=== PATIENT | male | born 1950 | race Caucasian/White ===

== ENCOUNTER → 2018-02-24 | Outpatient (CLI) | payer OTHER | END | disposition home or self-care (01) | LOC: RAH 14:54 | PROVIDERS: ATTEND Orthopaedic Surgery | DX: M19.042 Primary osteoarthritis, left hand (principal); M19.041 Primary osteoarthritis, right hand | CPT/HCPCS: 73130 ==

== ENCOUNTER → 2024-09-06 | Outpatient (CLI) | payer OTHER | END | disposition home or self-care (01) | LOC: SHCH 09:11 | PROVIDERS: ATTEND Internal Medicine Cardiovascular Disease | DX: I48.0 Paroxysmal atrial fibrillation (principal) | CPT/HCPCS: 93306 ==

== ENCOUNTER 2025-09-04 18:32 | Inpatient (IN) | payer OTHER, MEDICARE ==
[~2025-09-04] VITALS: Ht 172.7 cm; Wt 67.4 kg
--- NOTE | 2025-09-04 19:05 | EKG ---
[facility] Test Date: 2025-09-04 Test Time: 18:55:01 Pat Name: LAWANDA MARTINEZ Department: [facility] Room: 422 Gender: M Principal Investigator: [id number] : 1950 Requested By: KEVIN MEEK Order Number: [id number] Reading MD: Dimple Pettit Measurements Intervals [place] Rate: 98 P: 0 OR: 0 QRS: -22 QRSD: 85 T: 61 QT: 368 QTc: 470 Interpretive Statements Atrial fibrillation Inferior infarct, old Nonspecific T abnormalities, lateral leads No previous ECG available for comparison Electronically Signed On 09-06-2025 12:36:08 X RAY SERVICE TECHNICIAN by Dimple Pettit Please click the below link to view image of tracing.
--- NOTE | 2025-09-04 19:31 | HMCIMG ---
EXAM: CT Head Without IV contrast. CLINICAL HISTORY: Altered mental status. TECHNIQUE: Axial computed tomography images of the head/brain without intravenous contrast. COMPARISON: None provided. FINDINGS: BRAIN: Mild to moderate bilateral cerebral and cerebellar neuroparenchymal atrophy. Moderate to severe chronic small vessel ischemic changes involving bilateral periventricular and supraventricular white matter. Chronic infarct in the left putamen and left insular cortex. No evidence of acute hemorrhage. No mass lesion. No CT evidence for acute territorial infarct. No midline shift or extra-axial collections. VENTRICLES: No hydrocephalus. ORBITS: The orbits are unremarkable. SINUSES AND MASTOIDS: The paranasal sinuses and mastoid air cells are clear. BONES: No fracture. SOFT TISSUES: Unremarkable. IMPRESSION: No evidence of acute hemorrhage. No mass lesion. No CT evidence for acute territorial infarct. Suggested MRI brain for further evaluation, if clinically indicated. Mild to moderate bilateral cerebral and cerebellar neuroparenchymal atrophy. Moderate to severe chronic small vessel ischemic changes involving bilateral periventricular and supraventricular white matter. Chronic infarct in the left putamen and left insular cortex. /[place]
--- NOTE | 2025-09-04 19:46 | HMCIMG ---
EXAM: CR Chest, 1 View. CLINICAL HISTORY: ams COMPARISON: None provided. FINDINGS: LUNGS: No active infiltrate PLEURAL SPACES: No pleural effusion or pneumothorax. MEDIASTINUM: Cardiac silhouette prominent BONES: No acute osseous abnormality. IMPRESSION: 1. Cardiac silhouette prominent 2. No active infiltrate /[place]
[2025-09-04 20:07] LABS: IMMATURE GRANULOCYTE ABSOLUTE 0.04 K/uL (0-1); NUCLEATED RED BLOOD CELLS 0.0 % (0.0-0.19); PLATELET COUNT (AUTO) 74 K/uL (130-400); RED BLOOD CELL COUNT(AUTO) 2.86 MIL/uL (4.50-6.20); RED CELL DISTRIBUTION WIDTH 16.3 % (11.0-15.5); WHITE BLOOD COUNT (AUTO) 6.4 K/uL (4.8-10.8)
[2025-09-04 20:21] LABS: INR 1.9 (0.85-1.15)
[2025-09-04 20:25] LABS: CREATININE 1.4 mg/dL (0.5-1.3); GLOMERULAR FILTR. RATE CALC 52.0 mL/min (>90); GLUCOSE,RANDOM 210.0 mg/dL (70-105); SODIUM SERUM 132.0 mmol/L (136-145); UREA NITROGEN, BLOOD 15.0 mg/dL (7-18)
[2025-09-04 20:29] LABS: ASPARTATE AMINOTRANSFERASE 61.0 U/L (10-37); TOTAL PROTEIN, SERUM 7.1 g/dL (6.0-8.3)
[2025-09-04 20:54] LABS: APPEARANCE,URINE CLEAR (CLEAR); GLUCOSE, URINE (UA) 30 mg/dL (NEGATIVE); LEUKOCYTE ESTERASE ,URINE NEGATIVE Leu/uL (NEGATIVE); NITRATE,URINE NEGATIVE (NEGATIVE); OCCULT BLOOD,URINE NEGATIVE (NEGATIVE)
[2025-09-04 20:58] LABS: ADD UA MICROSCOPIC YES
[2025-09-04 21:01] LABS: SQUAMOUS EPITHELIAL CELL,UR RARE /HPF (0-2)
--- NOTE | 2025-09-04 21:01 | ERN ---
General Chief Complaint: Altered Mental Status Stated Complaint: ALTERED MENTAL STATUS HX OF LIVER CIRRHOSIS. Time Seen by MD: 18:35 Time Seen by Midlevel: 18:35 Source: patient History of Present Illness Initial Comments 75-YEAR-OLD MALE WITH A PAST MEDICAL HISTORY OF LIVER CIRRHOSIS BEING BROUGHT IN BY EMS FOR EVALUATION OF ALTERED MENTAL STATUS Allergies: Coded Allergies: No Known Drug Allergies (Unverified Allergy, Unknown, 09/04/25) Past Medical History Past Medical History: A-Fib, Diabetes-Type II, High Cholesterol, Hypertension, Liver Disease Medical History Other: LIVER CIRRHOSIS Past Surgical History: Unknown ROS Dictation CONSTITUTIONAL: NEGATIVE EXCEPT FOR HPI HEAD/FACE: NEGATIVE EXCEPT FOR HPI EENT: NEGATIVE EXCEPT FOR HPI RESPIRATORY: NEGATIVE EXCEPT FOR HPI GASTROINTESTINAL/ABDOMINAL: NEGATIVE EXCEPT FOR HPI GENITOURINARY: NEGATIVE EXCEPT FOR HPI MUSCULOSKELETAL: NEGATIVE EXCEPT FOR HPI INTEGUMENTARY: NEGATIVE EXCEPT FOR HPI NEUROLOGICAL/PSYCH: NEGATIVE EXCEPT FOR HPI HEMATOLOGIC/LYMPHATIC: NEGATIVE EXCEPT FOR HPI ALL SYSTEMS NEGATIVE, EXCEPT NOTED ABOVE. 13 POINT REVIEW OF SYSTEMS ASSESSED AND ALL NEGATIVE EXCEPT FOR ABOVE. Physical Exam Physical Exam Dictation VITAL SIGNS REVIEWED GENERAL APPEARANCE: ALERT, ORIENTED X 2 HEAD AND FACE: NON-TRAUMATIC. EYES: PERRL, PINK CONJUNCTIVAS, EYELID NO TRAUMA, ANTERIOR CHAMBER WITH ARCUS SENILIS. EARS: PINNAS INTACT AND NO SIGNS OF TRAUMA OR ERYTHEMA EAR CANALS CLEAR AND NO DISCHARGE TM NO ERYTHEMA NOSE: NO DISCHARGE, NO BLEEDING. OROPHARYNX: MOUTH NORMAL, TONGUE PINK, PHARYNX CLEAR,NO ERYTHEMA, TONSILS NO EXUDATES, NO ABSCESSES NOTED, MUCOUS MEMBRANE MOIST NECK: SUPPLE, NON-TENDER, NO THYROMEGALY, NO MASSES, NO JVD, NO BRUITS BREAST:DEFERRED CHEST:NO TENDERNESS, NO CREPITUS, NO PARADOXICAL MOVEMENT, NO RETRACTIONS LUNGS:CLEAR, WELL-VENTILATED, SYMMETRIC, NO RALES, NO WHEEZING, NO RHONCHI, NO STRIDOR, GOOD BREATH SOUNDS BILATERALLY HEART: REGULAR RATE, REGULAR RHYTHM, NO MURMUR, NO GALLOPS VASCULAR: NO PERIPHERAL EDEMA, ABDOMEN: SOFT, POSITIVE BOWEL SOUNDS, NONDISTENDED, NO GUARDING, NONTENDER, NO REBOUND, NO MASSES NO HEPATOMEGALY, NO SPLENOMEGALY, NO FORD'S SIGN, NO HERNIAS. RECTAL: DEFERRED GENITAL: DEFERRED NEUROLOGICAL: NORMAL SPEECH, FOLLOWS SIMPLE COMMANDS, APPEARS CONFUSED MUSCULOSKELETAL: NECK NONTENDER, FULL RANGE OF MOTION, BACK NONTENDER, FULL RANGE OF MOTION, EXTREMITIES: NONTENDER, FULL RANGE OF MOTION SKIN: COLOR PINK, DRY, NO TURGOR, NO RASH, NO LACERATIONS, NO ABRASIONS, NO CONTUSIONS. LYMPHATIC: DEFERRED Results Laboratory and Microbiology Lab and Micro Result Laboratory Tests Test 09/04/25 19:55 White Blood Count 6.4 K/uL (4.8-10.8) Red Blood Count 2.86 MIL/uL (4.50-6.20) L Hemoglobin 10.5 g/dL (14.0-18.0) L Hematocrit 30.5 % (42-54) L Mean Corpuscular Volume 106.6 fL (79-99) H Mean Corpuscular Hemoglobin 36.7 pg (27.0-33.0) H Mean Corpuscular Hemoglobin Concent 34.4 g/dL (32.0-36.0) Red Cell Distribution Width 16.3 % (11.0-15.5) H Platelet Count 74 K/uL (130-400) L Mean Platelet Volume 10.6 fL (7.5-10.5) H Immature Granulocyte % (Auto) 0.6 % (0-1) Neutrophils (%) (Auto) 66.8 % (40.0-77.0) Lymphocytes (%) (Auto) 16.5 % (21.0-51.0) L Monocytes (%) (Auto) 12.0 % (3.0-13.0) Eosinophils (%) (Auto) 3.5 % (0.0-8.0) Basophils (%) (Auto) 0.6 % (0.0-5.0) Neutrophils # (Auto) 4.2 K/uL (1.8-7.7) Lymphocytes # (Auto) 1.1 K/uL (1.0-4.8) Monocytes # (Auto) 0.8 K/uL (0.1-1.0) Eosinophils # (Auto) 0.22 K/uL (0.00-0.70) Basophils # (Auto) 0.04 K/uL (0.00-0.20) Absolute Immature Granulocyte (auto 0.04 K/uL (0-1) Nucleated Red Blood Cells 0.0 % (0.0-0.19) Red Blood Cell Morphology See comments Prothrombin Time 18.9 SEC (9.6-11.6) H Prothromb Time International Ratio 1.90 (0.85-1.15) H Activated Partial Thromboplast Time 33.2 SEC (26.3-35.5) Sodium Level 132 mmol/L (136-145) L Potassium Level 5.0 mmol/L (3.5-5.1) Chloride Level 104 mmol/L (101-111) Carbon Dioxide Level 22 mmol/L (21-32) Blood Urea Nitrogen 15 mg/dL (7-18) Creatinine 1.4 mg/dL (0.5-1.3) H Glomerular Filtration Rate Calc 52 mL/min (>90) Random Glucose 210 mg/dL (70-105) H Lactic Acid Level 3.0 mmol/L (0.8-2.5) H Total Calcium 7.9 mg/dL (8.5-10.1) L Magnesium Level 1.90 mg/dL (1.80-2.40) Total Bilirubin 4.1 mg/dL (0.2-1.0) H Direct Bilirubin 1.7 mg/dL (0.0-0.3) H Aspartate Amino Transf (AST/SGOT) 61 U/L (10-37) H Alanine Aminotransferase (ALT/SGPT) 47 U/L (12-78) Alkaline Phosphatase 246 U/L (50-136) H Ammonia 61 umol/L (11-32) H Troponin I High Sensitivity 17 ng/L (4-75) B-Type Natriuretic Peptide 202 pg/mL (0-100) H Total Protein 7.1 g/dL (6.0-8.3) Albumin 1.9 g/dL (3.5-5.0) L Labs Reviewed?: Yes MDM MDM: DIFFERENTIAL DIAGNOSIS: HEPATIC ENCEPHALOPATHY, SEPSIS, URINARY TRACT INFECTION RATIONALE: TESTS CONSIDERED AND ORDERED SECONDARY TO SHARED DECISION MAKING INCLUDE: PREVIOUS OUTSIDE RECORDS REVIEWED: OLD ER VISITS. RISK OF COMPLICATION AND/OR MORBIDITY OR MORTALITY OF PATIENT MANAGEMENT: NONE MEDICATIONS-PER MEDICATION RECONCILIATION NEED FOR HOSPITALIZATION: PATIENT DOES MEET CRITERIA FOR HOSPITALIZATION. NEED FOR EMERGENCY MAJOR/MINOR SURGERY: NO THERE ARE NO SOCIAL CONCERNS WITH THIS PATIENT. PRESCRIPTION DRUG MANAGEMENT PRESCRIPTIONS WILL INCLUDE SYMPTOMATIC CARE PATIENT'S PRIOR EXTERNAL MEDICAL RECORDS FROM OTHER ER VISITS WERE REVIEWED BY ME INDICATED. PRIOR TESTING AND RESULTS FROM PREVIOUS VISITS WERE REVIEWED. PRIOR TESTS WERE TAKEN INTO ACCOUNT WITH MEDICAL DECISION MAKING AND RESOURCE UTILIZATION, INDEPENDENT HISTORIAN/HISTORIANS WERE USED TO OBTAIN COMPLETE MEDICAL HISTORY. I INDEPENDENTLY INTERPRETED THE TEST THAT WERE PERFORMED, RESULTS WERE REVIEWED BY ME AND CONSIDERED FINDINGS ON RADIOLOGY IF ORDERED. MEDICAL MANAGEMENT AND EXAMINATION INTERPRETATION DISCUSSIONS WERE HAD BY ME WITH OTHER QUALIFIED HEALTHCARE PROFESSIONALS INDICATED FOR THE PATIENT'S CARE. ED Course Orders Procedure Category Date Status Time 12 Lead Ekg Tracing- EKG 09/04/25 Complete Technical 18:44 Ammonia LAB 09/04/25 Complete 18:44 B-Type Natriuretic LAB 09/04/25 Complete Peptide 18:44 Basic Metabolic Panel LAB 09/04/25 Complete 18:44 Cbc With Differential LAB 09/04/25 Complete 18:44 Magnesium LAB 09/04/25 Complete 18:44 Pt And Ptt LAB 09/04/25 Complete 18:44 Troponin I High LAB 09/04/25 Complete Sensitivity 18:44 Urinalysis Profile LAB 09/04/25 In Process 18:44 Chest 1vw RAD 09/04/25 Resulted 18:44 Ct Head/Brain W/O CT 09/04/25 Resulted Contrast 18:44 Lactic Acid LAB 09/04/25 Complete 18:44 Hepatic Function Panel LAB 09/04/25 Complete 18:44 Blood Cult JAMISON 09/04/25 Logged 20:26 Procalcitonin LAB 09/04/25 In Process 20:26 0.9%Nacl 1000ml (Ns PHA 09/04/25 In Process 1000ml) 20:30 Lactulose 20 Gm/30 Ml PHA 09/04/25 In Process Udcup (Constulose 21:00 Ceftriaxone 2gm Vial PHA 09/04/25 In Process (Rocephin 2gm Inj) 21:00 Current Medications Medications (Trade) Dose Ordered Sig/Cheikh Route PRN Reason Start Time Stop Time Status Last Admin Dose Admin Ceftriaxone Sodium (Rocephin 2gm Inj) 2 gm ONCE ONCE IVPB 09/04/25 21:00 09/04/25 21:01 Lactulose (Constulose 20gm/ 30ml Udcup) 20 gm ONCE ONCE PO 09/04/25 21:00 09/04/25 21:01 Sodium Chloride 1,000 ml @ 150 mls/hr Q6H40M IV 09/04/25 20:30 10/04/25 20:29 Vital Signs Date Time Temp Pulse Resp B/P (MAP) Pulse Ox O2 Delivery O2 Flow Rate FiO2 09/04/25 20:37 100 18 99/64 100 Room Air* 0 21 09/04/25 18:35 98.2 85 23 107/73 98 Room Air 0 DX & DISP Disposition: Inpatient Departure Impression: Primary Impression: Hepatic encephalopathy Additional Impressions: Chronic anemia, Lactic acidosis, Altered mental status Condition: Stable Referrals: JOSEP DURHAM (PCP) I have reviewed the case, and I agree with, Diagnosis and Plan I PERFORMED THE SUBSTANTIVE PORTION OF THE VISIT. I HAVE REVIEWED AND PERSONALLY MADE AND APPROVE THE MANAGEMENT PLAN THAT IS DOCUMENTED IN THE NOTE BY MYSELF OR THE JOSEFA. I ACKNOWLEDGE FOR RESPONSIBILITY FOR THE PATIENT'S MANAGEMENT PLAN. KEVIN MEEK PAC Sep 04, 2025 21:01
[2025-09-04] MEDS: 0.9%NACL 1000ML 1,000 ML IV SCH (21:09)
[2025-09-04] MEDS: LACTULOSE 20 GM/30 ML UDCUP PO ONE (21:09)
--- NOTE | 2025-09-04 22:11 | HP ---
[facility] Date of Service: Sep 04, 2025 Time of Service: 22:11 PCP: Suyapa Mckinney HISTORY OF PRESENT ILLNESS: This is a 75-year-old male with past medical history of atrial fibrillation , diabetes type 2, liver cancer stage IV, liver cirrhosis ,hypertension, recent fall and stroke one year ago who was brought by EMS to the ED evaluation of altered mental status.As per daughter who was at bedside during my evaluation patient has been having altered mental status but today he has been severely confused and that patient lives alone with a care provider that stays with him for a few hours and last week patient sustained many bruises due to fall and patient was brought to [facility] she said.Patient reports patient has a watchman device placed on January 2025 .Patient has been compliant with taking medication and his last bowel movement was last night he usually has one BM per day.As per daughter she wanted patient to be placed in a nursing facility as he is unable to function independently and unsafe for him to live alone. As per daughter patient has a good appetite. Seen and examined patient in the ED awake,alert and confused but able to answer question appropriately patient has occasional forgetfulness.Patient knows his name and where he is and recognized daughter and her name.Patient able to follow commands and apppears comfortable.Patient denies fever,chills,cough,nausea,vomiting,abdominal pain,chest pain,palpitation and shortness of breath. Latest vital signs temperature 98.4, heart rate 91, blood pressure 107/56 saturation 96% on room air. Labs: CBC 6.4, 66, hemoglobin 10, hematocrit 30 platelet count 74. Sodium 132, creatinine 1.4, GFR 52, glucose 210, lactic acid three, total calcium 7.9, total bili 4.1, direct bilirubin 1.7, AST 61, ALT 47, alkaline phosphatase 246 ammonia 61, troponin 17 BNP 202 albumin 1.9 troponin less than 0.05. Urinalysis significant for urine protein 20, urine glucose 30 urine ketones five urine urobilinogen three RBC 2-5 and urine WBC 2- 5. CT head result revealed no evidence of acute hemorrhage. No mass lesion. No CT evidence for acute territorial infarct. Suggested MRI brain for further evaluation if clinically indicated. [id number] bilateral cerebral and cerebellar neuro parenchymal atrophy. Moderate to severe chronic small-vessel ischemic changes involving bilateral periventricular and supraventricular white matter. Chronic infarct in the left putamen and left insular cortex. Chest x- ray result revealed cardiac silhouette prominent and no active infiltrate. While in the ER patient was started on NS at 1:50 a.m., lactulose 20 g p.o. and Rocephin 2 g IV. We will admit patient for further medical management. REVIEW OF SYSTEMS CONSTITUTIONAL: Patient appears pale looking Denies fevers, chills, or night sweats. No unintentional weight loss reported. NEUROLOGICAL: Patient is awake alert ,confused and forgetful Denies headache, amaurosis fugax, motor weakness, sensory deficit, vertigo/spinning sensation, gait abnormalities, or tremors. ENT: No hearing loss, otalgia, otorrhea, rhinitis, rhinorrhea, hoarseness, or sore throat. CARDIOVASCULAR: Denies any exertional angina, dyspnea on exertion, orthopnea, paroxysmal nocturnal dyspnea, palpitations, life-threatening arrhythmias, claudication. PULMONARY: Denies any shortness of breath, cough, phlegm/sputum, hemoptysis, pleuritic chest pain. SLEEP: Denies morning headaches, daytime somnolence or napping. Denies difficulty falling asleep, staying asleep, waking from sleep. Denies knowledge of snoring. GASTROINTESTINAL: Denies any type of dysphagia to either liquids or solids. Denies nausea, vomiting, pyrosis, early satiety, abdominal pain, diarrhea, constipation, or changes in stool consistency or caliber. Denies coffee-ground emesis, hematemesis, hematochezia, or melanotic stools. GENITOURINARY: Denies frequency, urgency, nocturia, hematuria or incontinence (Storage/Irritative symptoms.) Low urinary stream, straining to void, urinary intermittency or hesitancy, splitting of the voiding stream, terminal dribbling. ENDOCRINOLOGIC: Denies polyuria, polydipsia, polyphagia or heat/cold intolerances. HEMATOLOGIC: Denies thrombophilia/previous clots, or coagulopathy/bleeding disorders. ONCOLOGIC: Denies personal history of malignancy. DERMATOLOGIC: Denies rashes or pruritus. PSYCHIATRIC: Denies any suicidal or homicidal ideation. Denies hallucinations. PAST MEDICAL HISTORY: [ atrial fibrillation , diabetes type 2, liver cancer stage IV, liver cirrhosis , hyperlipidemia hypertension, recent fall and stroke ] PAST SURGICAL HISTORY: [ Watchman device placement ] PAST SOCIAL HISTORY: [Patient lives alone. Patient and daughter denies alcohol tobacco and recreational drug use ] FAMILY HISTORY: [ Noncontributory] Coded Allergies: No Known Drug Allergies (Unverified Allergy, Unknown, 09/04/25) PHYSICAL EXAM GENERAL APPEARANCE: The patient is awake, alert, and orientedx2 in no acute cardiopulmonary distress. NEUROLOGICAL: Patient is confused and forgetful No sensory deficits. HEENT: Face is symmetric. Pupils are equal and reactive. Extraocular movements are intact. NECK: Supple. No JVD. No thyromegaly. No submental, submandibular, pre- /postauricular, occipital or supraclavicular lymphadenopathy. CHEST: Normal chest expansion. No Telemetry. LUNGS: Absence of any rales, rhonchi or any wheezing. CARDIOVASCULAR: Irregular. S1 and S2 normal. No appreciable rubs, murmurs or gallops. ABDOMEN: Soft, nontender, and nondistended. There is no rebound, voluntary guarding, or rigidity. : Deferred. No [place]. EXTREMITIES: Non-edematous and not cyanotic. No clubbing. Good capillary refill. SKIN: No skin breakdown. Vital Sign (Last 24 Hours) 09/04/25 09/04/25 18:35 20:37 Temp 98.2 Pulse 100 Resp 18 B/P (MAP) 99/64 Pulse Ox 100 O2 Delivery Room Air* O2 Flow Rate 0 FiO2 21 LABS: Laboratory: Test 09/04/25 20:35 09/04/25 19:55 Range/Units Urine Color YELLOW YELLOW Urine Appearance CLEAR CLEAR Urine pH 6.0 5.0-8.0 Urine Specific [place] 1.030 1.001-1.031 Urine Protein 20 H NEGATIVE mg/dL Urine Glucose (UA) 30 H NEGATIVE mg/dL Urine Ketones 5 H NEGATIVE mg/dL Urine Occult Blood NEGATIVE NEGATIVE Urine Nitrate NEGATIVE NEGATIVE Urine Bilirubin NEGATIVE NEGATIVE mg/dL Urine Urobilinogen 3 H 0.2-1.0 mg/dL Urine Leukocyte Esterase NEGATIVE NEGATIVE Davida/uL Urine RBC 2-5 H 0-1 /HPF Urine WBC 2-5 H 0-1 /HPF Urine Squamous Epithelial Cells RARE 0-2 /HPF Urine Bacteria None None Seen /HPF White Blood Count 6.4 4.8-10.8 K/uL Red Blood Count 2.86 L 4.50-6.20 MIL/uL Hemoglobin 10.5 L 14.0-18.0 g/dL Hematocrit 30.5 L 42-54 % Mean Corpuscular Volume 106.6 H 79-99 fL Mean Corpuscular Hemoglobin 36.7 H 27.0-33.0 pg Mean Corpuscular Hemoglobin Concent 34.4 32.0-36.0 g/dL Red Cell Distribution Width 16.3 H 11.0-15.5 % Platelet Count 74 L 130-400 K/uL Mean Platelet Volume 10.6 H 7.5-10.5 fL Immature Granulocyte % (Auto) 0.6 0-1 % Neutrophils (%) (Auto) 66.8 40.0-77.0 % Lymphocytes (%) (Auto) 16.5 L 21.0-51.0 % Monocytes (%) (Auto) 12.0 3.0-13.0 % Eosinophils (%) (Auto) 3.5 0.0-8.0 % Basophils (%) (Auto) 0.6 0.0-5.0 % Neutrophils # (Auto) 4.2 1.8-7.7 K/uL Lymphocytes # (Auto) 1.1 1.0-4.8 K/uL Monocytes # (Auto) 0.8 0.1-1.0 K/uL Eosinophils # (Auto) 0.22 0.00-0.70 K/uL Basophils # (Auto) 0.04 0.00-0.20 K/uL Absolute Immature Granulocyte (auto 0.04 0-1 K/uL Nucleated Red Blood Cells 0.0 0.0-0.19 % Red Blood Cell Morphology See comments Prothrombin Time 18.9 H 9.6-11.6 SEC Prothromb Time International Ratio 1.90 H 0.85-1.15 Activated Partial Thromboplast Time 33.2 26.3-35.5 SEC Sodium Level 132 L 136-145 mmol/L Potassium Level 5.0 3.5-5.1 mmol/L Chloride Level 104 101-111 mmol/L Carbon Dioxide Level 22 21-32 mmol/L Blood Urea Nitrogen 15 7-18 mg/dL Creatinine 1.4 H 0.5-1.3 mg/dL Glomerular Filtration Rate Calc 52 >90 mL/min Random Glucose 210 H 70-105 mg/dL Lactic Acid Level 3.0 H 0.8-2.5 mmol/L Total Calcium 7.9 L 8.5-10.1 mg/dL Magnesium Level 1.90 1.80-2.40 mg/dL Total Bilirubin 4.1 H 0.2-1.0 mg/dL Direct Bilirubin 1.7 H 0.0-0.3 mg/dL Aspartate Amino Transf (AST/SGOT) 61 H 10-37 U/L Alanine Aminotransferase (ALT/SGPT) 47 12-78 U/L Alkaline Phosphatase 246 H 50-136 U/L Ammonia 61 H 11-32 umol/L Troponin I High Sensitivity 17 4-75 ng/L B-Type Natriuretic Peptide 202 H 0-100 pg/mL Total Protein 7.1 6.0-8.3 g/dL Albumin 1.9 L 3.5-5.0 g/dL Procalcitonin < 0.05 L 0.05-0.5 ng/mL Current Medications Medications (Trade) Dose Ordered Sig/Cheikh Route PRN Reason Start Time Stop Time Status Last Admin Dose Admin Sodium Chloride 1,000 ml @ 150 mls/hr Q6H40M IV 09/04/25 20:30 10/04/25 20:29 09/04/25 21:09 150 MLS/HR DIAGNOSTICS / RADIOLOGY: [ ] ASSESSMENT: Hepatic encephalopathy POA Hyperammonemia POA Atrial fibrillation POA Status post Watchman device POA Acute anemia POA Acute thrombocytopenia POA Hyponatremia POA Lactic acidosis POA Uncontrolled diabetes POA Elevated liver enzymes secondary to liver cirrhosis POA Elevated BNP POA Protein calorie malnutrition POA History of TIA POA History of fall PLAN: We will admit patient in medical telemetry We will start on heart healthy diet Start on lactulose 20 g p.o. b.i.d. Start on famotidine 20 mg p.o. daily for GI prophylaxis We will replace electrolytes as needed per protocol We will start on insulin sliding scale AC & HS with hypoglycemia protocol We will add prn medication for fever,pain,cough , nausea and vomiting We will reconcile home meds once medlist available Fall precaution We will request case management service We will request labs in am Further orders to follow depending on above results Case discussed with attending physician and came up with above treatment and plan of care. ADVANCED CARE PLANNING 1. Which of the following were discussed? Hospice Care - No Therapeutic options - Yes Advance Directives - No Other discussions - 2. Discussed with who? Patient 3. Voluntary nature of this service was explained to the patient? Yes 4. Amount of time spent - __22 min 5. Reviewed by Physician? (if this service was performed by NPP) Yes Patient seen and examined by me. Agree with note by CIRCULAR KNITTER HELPER SEE ADDITIONAL ORDERS PER CHART DISCUSSED WITH NURSING STAFF ZAC [facility] CHIEF EQUIPMENT TECHNICIAN Sep 04, 2025 22:11
[2025-09-04 23:20] VITALS: O2SAT 95
[2025-09-04] MEDS ORDERED: RIFA550T PO (23:43)
[2025-09-04] MEDS ORDERED: OMEP20TA20 PO (23:43)
[2025-09-04] MEDS ORDERED: SPIR100T5 PO (23:43)
[2025-09-04] MEDS ORDERED: LACT-441 PO (23:43)
[2025-09-04] MEDS ORDERED: ROSU10TA98 PO (23:43)
[2025-09-04] MEDS ORDERED: NPH,100V11 SQ (23:43)
[2025-09-05] VITALS (8 sets, daily range): BP systolic 91–122; BP diastolic 58–78; PULSE 81–108; RESP 14–20; TEMP 97.6–98.4; O2SAT 99
[2025-09-05] MEDS ORDERED: PoTASSium chl 10% ELIXIR 20MEQ 20 MEQ/15 ML UDCUP PO PRN
[2025-09-05] MEDS ORDERED: DEXTROSE 50%-WATER 50 ML DISP.SYRIN IV PRN
[2025-09-05] MEDS ORDERED: GLUCAGON 1MG KIT 1 MG ML IM PRN
[2025-09-05 05:05] LABS: IMMATURE GRANULOCYTE ABSOLUTE 0.03 K/uL (0-1); NUCLEATED RED BLOOD CELLS 0.0 % (0.0-0.19); PLATELET COUNT (AUTO) 61 K/uL (130-400); RED BLOOD CELL COUNT(AUTO) 2.77 MIL/uL (4.50-6.20); RED CELL DISTRIBUTION WIDTH 16.0 % (11.0-15.5); WHITE BLOOD COUNT (AUTO) 5.4 K/uL (4.8-10.8)
[2025-09-05 05:23] LABS: ASPARTATE AMINOTRANSFERASE 56.0 U/L (10-37); CREATININE 1.3 mg/dL (0.5-1.3); GLOMERULAR FILTR. RATE CALC 57.0 mL/min (>90); GLUCOSE,RANDOM 99.0 mg/dL (70-105); SODIUM SERUM 134.0 mmol/L (136-145); TOTAL PROTEIN, SERUM 6.7 g/dL (6.0-8.3); UREA NITROGEN, BLOOD 12.0 mg/dL (7-18)
[2025-09-05] MEDS: FAMOTIDINE 20MG TAB PO SCH (09:11)
[2025-09-05] MEDS: LACTULOSE 20 GM/30 ML UDCUP PO SCH (09:11)
--- NOTE | 2025-09-05 12:53 | NUR ---
DCP: [facility] [phone] fax [phone] Atiya met with pt and daughter Sharon Zarate [phone]. Daughter states she and her sister in law have been staying with pt for the last 2 weeks and assisting him as needed. Daughter states pt has declined rapidly since GF left him. Reports pt has had multiple falls at home and now requiring assistance with ADLS, home management, transportation and meal prep. Pt uses a regular walker and bsc at home. Pt is a [place], 90% service connected. Daughter requesting SNF for PT in hopes pt will improve and regain mobility and independence. Sw spoke to Freda Quintero at [facility] who is pt's SW. Per Freda, pt qualifies for short and manager terminal placement. Freda called [facility] and spoke to Rachel. [facility] Per Freda, we can submit request for SNF at this facility. Family will need to transport Sw informed daughter of conversation with Freda. Daughter to call facility and see other options should they want pt to stay at the facility permanently since she lives near [place]. Daughter spoke to Richmond Bautista [phone] at [facility] and would like referral sent to facility for SNF and she will decide what she does next with pt. Dgtr also wants [place] coverage for transport. Daughter signed consent. Renae NGUYỄN updated consent on chart
[2025-09-05] MEDS ORDERED: MAGNESIUM 2GM PREMIX 50ML 50 ML IV SCH (13:30)
--- NOTE | 2025-09-05 13:36 | PN ---
[facility] PROGRESS NOTE Date of Service: Sep 05, 2025 Time of Service: 13:34 SUBJECTIVE: [Patient was seen and examined in the room this morning. No acute events or changes were reported overnight by nursing staff. The patients daughter remains at bedside and reports that the patient has experienced a rapid decline in mental status and overall function over the past two weeks. No new complaints of pain, fever, chills, chest pain, shortness of breath, nausea, or vomiting. Appetite remains fair per family. The patient continues to be confused but is able to answer simple questions and recognizes family members. No new falls or injuries reported since admission. We will continue to monitor closely. Plan to initiate banana bag therapy today. ] REVIEW OF SYSTEMS CONSTITUTIONAL: Patient appears pale looking Denies fevers, chills, or night sweats. No unintentional weight loss reported. NEUROLOGICAL: Patient is awake alert ,confused and forgetful Denies headache, amaurosis fugax, motor weakness, sensory deficit, vertigo/spinning sensation, gait abnormalities, or tremors. ENT: No hearing loss, otalgia, otorrhea, rhinitis, rhinorrhea, hoarseness, or sore throat. CARDIOVASCULAR: Denies any exertional angina, dyspnea on exertion, orthopnea, paroxysmal nocturnal dyspnea, palpitations, life-threatening arrhythmias, claudication. PULMONARY: Denies any shortness of breath, cough, phlegm/sputum, hemoptysis, pleuritic chest pain. SLEEP: Denies morning headaches, daytime somnolence or napping. Denies difficulty falling asleep, staying asleep, waking from sleep. Denies knowledge of snoring. GASTROINTESTINAL: Denies any type of dysphagia to either liquids or solids. Denies nausea, vomiting, pyrosis, early satiety, abdominal pain, diarrhea, constipation, or changes in stool consistency or caliber. Denies coffee-ground emesis, hematemesis, hematochezia, or melanotic stools. GENITOURINARY: Denies frequency, urgency, nocturia, hematuria or incontinence (Storage/Irritative symptoms.) Low urinary stream, straining to void, urinary intermittency or hesitancy, splitting of the voiding stream, terminal dribbling. ENDOCRINOLOGIC: Denies polyuria, polydipsia, polyphagia or heat/cold intolerances. HEMATOLOGIC: Denies thrombophilia/previous clots, or coagulopathy/bleeding disorders. ONCOLOGIC: Denies personal history of malignancy. DERMATOLOGIC: Denies rashes or pruritus. PSYCHIATRIC: Denies any suicidal or homicidal ideation. Denies hallucinations. PHYSICAL EXAM GENERAL APPEARANCE: The patient is awake, alert, and orientedx2 in no acute cardiopulmonary distress. NEUROLOGICAL: Patient is confused and forgetful No sensory deficits. HEENT: Face is symmetric. Pupils are equal and reactive. Extraocular movements are intact. NECK: Supple. No JVD. No thyromegaly. No submental, submandibular, pre- /postauricular, occipital or supraclavicular lymphadenopathy. CHEST: Normal chest expansion. No Telemetry. LUNGS: Absence of any rales, rhonchi or any wheezing. CARDIOVASCULAR: Irregular. S1 and S2 normal. No appreciable rubs, murmurs or gallops. ABDOMEN: Soft, nontender, and nondistended. There is no rebound, voluntary guarding, or rigidity. : Deferred. No Lofton. EXTREMITIES: Non-edematous and not cyanotic. No clubbing. Good capillary refill. SKIN: No skin breakdown. Vital Signs (last 8hr) Date Time Temp Pulse Resp B/P (MAP) Pulse Ox O2 Delivery O2 Flow Rate FiO2 09/05/25 11:50 97.5 81 14 100/62 97 Room Air 09/05/25 07:58 97.9 99 16 91/58 99 Room Air LABS: Laboratory: Test 09/05/25 10:59 09/05/25 08:51 09/05/25 04:52 09/04/25 20:35 Range/Units Whole Blood Glucose 116 H 70-110 MG/DL Lactic Acid Level 2.2 0.8-2.5 mmol/L White Blood Count 5.4 4.8-10.8 K/uL Red Blood Count 2.77 L 4.50-6.20 MIL/uL Hemoglobin 10.1 L 14.0-18.0 g/dL Hematocrit 29.0 L 42-54 % Mean Corpuscular Volume 104.7 H 79-99 fL Mean Corpuscular Hemoglobin 36.5 H 27.0-33.0 pg Mean Corpuscular Hemoglobin Concent 34.8 32.0-36.0 g/dL Red Cell Distribution Width 16.0 H 11.0-15.5 % Platelet Count 61 L 130-400 K/uL Mean Platelet Volume 9.9 7.5-10.5 fL Immature Granulocyte % (Auto) 0.6 0-1 % Neutrophils (%) (Auto) 58.0 40.0-77.0 % Lymphocytes (%) (Auto) 21.5 21.0-51.0 % Monocytes (%) (Auto) 13.8 H 3.0-13.0 % Eosinophils (%) (Auto) 4.8 0.0-8.0 % Basophils (%) (Auto) 1.3 0.0-5.0 % Neutrophils # (Auto) 3.2 1.8-7.7 K/uL Lymphocytes # (Auto) 1.2 1.0-4.8 K/uL Monocytes # (Auto) 0.8 0.1-1.0 K/uL Eosinophils # (Auto) 0.26 0.00-0.70 K/uL Basophils # (Auto) 0.07 0.00-0.20 K/uL Absolute Immature Granulocyte (auto 0.03 0-1 K/uL Nucleated Red Blood Cells 0.0 0.0-0.19 % Platelet Morphology Comment See comments Sodium Level 134 L 136-145 mmol/L Potassium Level 3.9 3.5-5.1 mmol/L Chloride Level 106 101-111 mmol/L Carbon Dioxide Level 19 L 21-32 mmol/L Blood Urea Nitrogen 12 7-18 mg/dL Creatinine 1.3 0.5-1.3 mg/dL Glomerular Filtration Rate Calc 57 >90 mL/min Random Glucose 99 # 70-105 mg/dL Total Calcium 8.2 L 8.5-10.1 mg/dL Magnesium Level 1.70 L 1.80-2.40 mg/dL Total Bilirubin 3.6 H 0.2-1.0 mg/dL Aspartate Amino Transf (AST/SGOT) 56 H 10-37 U/L Alanine Aminotransferase (ALT/SGPT) 41 12-78 U/L Alkaline Phosphatase 233 H 50-136 U/L Ammonia 38 #H 11-32 umol/L Total Protein 6.7 6.0-8.3 g/dL Albumin 1.8 L 3.5-5.0 g/dL Procalcitonin < 0.05 L 0.05-0.5 ng/mL Urine Color YELLOW YELLOW Urine Appearance CLEAR CLEAR Urine pH 6.0 5.0-8.0 Urine Specific [place] 1.030 1.001-1.031 Urine Protein 20 H NEGATIVE mg/dL Urine Glucose (UA) 30 H NEGATIVE mg/dL Urine Ketones 5 H NEGATIVE mg/dL Urine Occult Blood NEGATIVE NEGATIVE Urine Nitrate NEGATIVE NEGATIVE Urine Bilirubin NEGATIVE NEGATIVE mg/dL Urine Urobilinogen 3 H 0.2-1.0 mg/dL Urine Leukocyte Esterase NEGATIVE NEGATIVE Davida/uL Urine RBC 2-5 H 0-1 /HPF Urine WBC 2-5 H 0-1 /HPF Urine Squamous Epithelial Cells RARE 0-2 /HPF Urine Bacteria None None Seen /HPF Test 09/04/25 19:55 Range/Units Red Blood Cell Morphology See comments Prothrombin Time 18.9 H 9.6-11.6 SEC Prothromb Time International Ratio 1.90 H 0.85-1.15 Activated Partial Thromboplast Time 33.2 26.3-35.5 SEC Direct Bilirubin 1.7 H 0.0-0.3 mg/dL Troponin I High Sensitivity 17 4-75 ng/L B-Type Natriuretic Peptide 202 H 0-100 pg/mL Current Medications Medications (Trade) Dose Ordered Sig/Cheikh Route PRN Reason Start Time Stop Time Status Last Admin Dose Admin Acetaminophen (TYLenol 325MG TAB) 650 mg Q4H PRN PO MILD PAIN (1-3) 09/04/25 22:30 10/04/25 22:29 Acetaminophen (TYLenol 325MG TAB) 650 mg Q6H PRN PO TEMPERATURE GREATER THAN 101.5 09/04/25 22:30 10/04/25 22:29 Ceftriaxone Sodium (ROCEphine 1G INJ) 1 gm Q24H IVPB 09/05/25 13:30 09/15/25 13:29 Dextrose (D50w) 50 ml AD PRN IV HYPOGLYCEMIA PROTOCOL 09/05/25 00:00 10/05/25 00:00 Famotidine (Pepcid 20mg Tab) 20 mg DAILY PO 09/05/25 09:00 10/05/25 08:59 09/05/25 09:11 20 MG Glucagon (Glucagon 1mg Kit) 1 mg AD PRN IM HYPOGLYCEMIA PROTOCOL 09/05/25 00:00 10/05/25 00:00 Insulin Human Regular (humuLIN R 100 UNIT/ML 3ML) INSULIN SLIDING SCAL... ACHS SQ 09/05/25 07:30 10/05/25 07:29 Lactulose (Constulose 20gm/ 30ml Udcup) 20 gm BID PO 09/05/25 09:00 10/05/25 08:59 09/05/25 09:11 20 GM Magnesium Sulfate 50 ml @ 0 mls/hr PROTOCOL IV 09/05/25 13:30 09/05/25 13:28 DC Magnesium Sulfate 50 ml @ 0 mls/hr PROTOCOL PRN IV OTHER [SEE ORDER COMMENTS] 09/05/25 00:00 10/05/25 00:00 Multivitamins/ Minerals 10 ml/ Folic Acid 1 mg/ Thiamine HCl 100 mg/Sodium Chloride 1,010 ml @ 50 mls/hr Q24H IV 09/05/25 13:30 09/08/25 09:41 Ondansetron HCl (zoFRAN 4MG INJ) 4 mg Q6H PRN IV NAUSEA/VOMITING 09/04/25 22:30 10/04/25 22:29 Potassium Chloride 100 ml @ 100 mls/hr AD PRN IV POTASSIUM PROTOCOL 09/05/25 00:00 10/05/25 00:00 Potassium Chloride (K-Dur/Klor-Con 20meq) 20 meq AD PRN PO POTASSIUM PROTOCOL 09/05/25 00:00 10/05/25 00:00 Potassium Chloride (KCl 10% Elixir 20meq/15ml) 20 meq AD PRN PO POTASSIUM PROTOCOL 09/05/25 00:00 10/05/25 00:00 Rifaximin (Xifaxan) 550 mg BID PO 09/05/25 21:00 10/05/25 20:59 Sodium Chloride 1,000 ml @ 150 mls/hr Q6H40M IV 09/04/25 20:30 09/04/25 22:40 DC 09/04/25 21:09 150 MLS/HR DIAGNOSTICS / RADIOLOGY: [ ] ASSESSMENT: Hepatic encephalopathy POA Hyperammonemia POA Atrial fibrillation POA Status post Watchman device POA Acute anemia POA Acute thrombocytopenia POA Hyponatremia POA Lactic acidosis POA Uncontrolled diabetes POA Elevated liver enzymes secondary to liver cirrhosis POA Elevated BNP POA Protein calorie malnutrition POA History of TIA POA History of fall PLAN: Continue close monitoring of mental status, vital signs, and neurological chec ks. Initiate banana bag (IV multivitamin infusion) to address potential nutritional deficiencies and support hepatic function. Continue lactulose 20 g PO BID for hepatic encephalopathy; titrate to achieve 23 soft stools daily. Maintain heart-healthy diet and protein-calorie supplementation as tolerated. Continue insulin sliding scale AC & HS with hypoglycemia protocol; monitor blood glucose closely. Continue famotidine 20 mg PO daily for GI prophylaxis. Replace electrolytes as needed per protocol; monitor daily labs including CBC, CMP, ammonia, and coagulation profile. Maintain fall precautions and implement safety measures. Request case management for evaluation of long-term care placement and support services. Reconcile home medications once medication list is available. PRN medications for fever, pain, cough, nausea, and vomiting as needed. Discuss goals of care and advanced directives with patient and family as appropriate. Update primary team and continue interdisciplinary communication. Further orders and adjustments to follow based on clinical status and laboratory results. Discussed with Dr. Browne, above plan was formulated ATTESTATION BY PHYSICIAN I have seen and examined the patient. I reviewed the documentation, medical d ecision making, and treatment plan as noted by the mid-level provider above. I agree with the findings and plan of care. MANASA BROWNE MD, JANICE B [facility] Sep 05, 2025 13:36
[2025-09-05 13:46] LABS: ABG OXYGEN SATURATION 62.4 % (94.0-98.0); BASE EXCESS,VENOUS BLOOD GAS -3.8 (-2.0-3.0); DEVICE COMMENT VEN RA; HCO3,VENOUS BLOOD GAS 19.4 (22.0-29.0); PCO2,VENOUS BLOOD GAS 29 (38-54); PH,VENOUS BLOOD GAS 7.441 (7.320-7.430); PO2,VENOUS BLOOD GAS 32.6 mmHg (23.0-48.0); TEMPERATURE, CELSIUS BG 37.0 CELSIUS (35.5-37.0)
[2025-09-05] MEDS ORDERED: COMPOUND IV REFRIGERATED 1 EACH IVSOLN MISC PRN (14:00)
[2025-09-05] MEDS: MAGNESIUM 2GM PREMIX 50ML 50 ML IV PRN (14:57)
[2025-09-05 15:12] LABS: NUCLEATED RED BLOOD CELLS 0.0 % (0.0-0.19); PLATELET COUNT (AUTO) 59.0 K/uL (130-400); RED BLOOD CELL COUNT(AUTO) 2.66 MIL/uL (4.50-6.20); RED CELL DISTRIBUTION WIDTH 16.4 % (11.0-15.5); WHITE BLOOD COUNT (AUTO) 5.4 K/uL (4.8-10.8)
[2025-09-05 15:30] LABS: CREATININE 1.4 mg/dL (0.5-1.3); GLOMERULAR FILTR. RATE CALC 52.0 mL/min (>90); GLUCOSE,RANDOM 190.0 mg/dL (70-105); SODIUM SERUM 134.0 mmol/L (136-145); UREA NITROGEN, BLOOD 14.0 mg/dL (7-18)
[2025-09-05 15:31] LABS: ASPARTATE AMINOTRANSFERASE 51.0 U/L (10-37); TOTAL PROTEIN, SERUM 6.3 g/dL (6.0-8.3)
[2025-09-05] MEDS: M.V.I. IV [ADULT] 10 ML, FOLic ACID 5 MG/ML VIAL 1 MG, THIAMINE HCL 100 MG in 0.9%NACL ... IV SCH (17:01)
[2025-09-05] MEDS ORDERED: METO25TA6 PO (19:25)
[2025-09-05] MEDS: RIFAXIMIN 550 MG TABLET PO SCH (20:18)
--- NOTE | 2025-09-05 23:23 | HMCIMG ---
EXAM: ULTRASOUND ABDOMEN, LIMITED (ASCITES EVALUATION) Technique: Grayscale sonography of the abdomen with targeted assessment for intraperitoneal free fluid in standard quadrants. Clinical Information: Evaluate for ascites. Findings: Peritoneal cavity: Free fluid is present in the right upper quadrant, left upper quadrant, and left lower quadrant consistent with a moderate volume of ascites. Abdominal wall/soft tissues: No focal abnormality identified at the surveyed sites. Impression: * Moderate intraperitoneal ascites involving the right upper quadrant, left upper quadrant, and left lower quadrant. /Tanmay
[2025-09-06 05:41] LABS: NUCLEATED RED BLOOD CELLS 0.0 % (0.0-0.19); PLATELET COUNT (AUTO) 49.0 K/uL (130-400); RED BLOOD CELL COUNT(AUTO) 2.65 MIL/uL (4.50-6.20); RED CELL DISTRIBUTION WIDTH 15.9 % (11.0-15.5); WHITE BLOOD COUNT (AUTO) 5.0 K/uL (4.8-10.8)
[2025-09-06 05:53] LABS: ASPARTATE AMINOTRANSFERASE 50.0 U/L (10-37); CREATININE 1.2 mg/dL (0.5-1.3); GLOMERULAR FILTR. RATE CALC 63.0 mL/min (>90); GLUCOSE,RANDOM 96.0 mg/dL (70-105); SODIUM SERUM 137.0 mmol/L (136-145); TOTAL PROTEIN, SERUM 6.2 g/dL (6.0-8.3); UREA NITROGEN, BLOOD 13.0 mg/dL (7-18)
[2025-09-06 06:26] VITALS: BP 119/61; PULSE 76; RESP 19; TEMP 98
[2025-09-06 08:00] VITALS: BP 89/54; PULSE 77; RESP 17; TEMP 98.1; O2SAT 100
[2025-09-06] MEDS ORDERED: M.V.I. IV [ADULT] 10 ML, FOLic ACID 5 MG/ML VIAL 1 MG, THIAMINE HCL 100 MG in 0.9%NACL ... IV SCH (09:00)
[2025-09-06 12:00] VITALS: BP 144/59; PULSE 107; RESP 17; TEMP 97.8
[2025-09-06] MEDS: LACTULOSE 20 GM/30 ML UDCUP PO SCH (13:00)
--- NOTE | 2025-09-06 13:09 | PN ---
[facility] PROGRESS NOTE Date of Service: Sep 06, 2025 Time of Service: 13:00 SUBJECTIVE: [The patient is alert but not fully oriented, with intermittent lucidity. He expressed a desire for rehabilitation and to return home to [place], and agreed to stay with his daughter in [place], [place]; case management will arrange a [facility] facility. Moderate ascites is present, and diagnostic paracentesis is planned to evaluate for infection and guide management . REVIEW OF SYSTEMS CONSTITUTIONAL: Patient appears pale looking Denies fevers, chills, or night sweats. No unintentional weight loss reported. NEUROLOGICAL: Patient is awake alert ,confused and forgetful Denies headache, amaurosis fugax, motor weakness, sensory deficit, vertigo/spinning sensation, gait abnormalities, or tremors. ENT: No hearing loss, otalgia, otorrhea, rhinitis, rhinorrhea, hoarseness, or sore throat. CARDIOVASCULAR: Denies any exertional angina, dyspnea on exertion, orthopnea, paroxysmal nocturnal dyspnea, palpitations, life-threatening arrhythmias, claudication. PULMONARY: Denies any shortness of breath, cough, phlegm/sputum, hemoptysis, pleuritic chest pain. SLEEP: Denies morning headaches, daytime somnolence or napping. Denies difficulty falling asleep, staying asleep, waking from sleep. Denies knowledge of snoring. GASTROINTESTINAL: Denies any type of dysphagia to either liquids or solids. Denies nausea, vomiting, pyrosis, early satiety, abdominal pain, diarrhea, constipation, or changes in stool consistency or caliber. Denies coffee-ground emesis, hematemesis, hematochezia, or melanotic stools. GENITOURINARY: Denies frequency, urgency, nocturia, hematuria or incontinence (Storage/Irritative symptoms.) Low urinary stream, straining to void, urinary intermittency or hesitancy, splitting of the voiding stream, terminal dribbling. ENDOCRINOLOGIC: Denies polyuria, polydipsia, polyphagia or heat/cold intolerances. HEMATOLOGIC: Denies thrombophilia/previous clots, or coagulopathy/bleeding disorders. ONCOLOGIC: Denies personal history of malignancy. DERMATOLOGIC: Denies rashes or pruritus. PSYCHIATRIC: Denies any suicidal or homicidal ideation. Denies hallucinations. PHYSICAL EXAM GENERAL APPEARANCE: The patient is awake, alert, and orientedx2 in no acute cardiopulmonary distress. NEUROLOGICAL: Patient is confused and forgetful No sensory deficits. HEENT: Face is symmetric. Pupils are equal and reactive. Extraocular movements are intact. NECK: Supple. No JVD. No thyromegaly. No submental, submandibular, pre- /postauricular, occipital or supraclavicular lymphadenopathy. CHEST: Normal chest expansion. No Telemetry. LUNGS: Absence of any rales, rhonchi or any wheezing. CARDIOVASCULAR: Irregular. S1 and S2 normal. No appreciable rubs, murmurs or gallops. ABDOMEN: Soft, nontender, and nondistended. There is no rebound, voluntary guarding, or rigidity. : Deferred. No [place]. EXTREMITIES: Non-edematous and not cyanotic. No clubbing. Good capillary refill. SKIN: No skin breakdown. Vital Signs (last 8hr) Date Time Temp Pulse Resp B/P (MAP) Pulse Ox O2 Delivery O2 Flow Rate FiO2 09/06/25 12:00 97.9 107 17 144/59 99 Room Air 09/06/25 08:00 98.1 77 17 89/54 100 Room Air 09/06/25 08:00 100 Room Air* 0 21 09/06/25 06:26 98.1 76 19 119/61 96 Room Air LABS: Laboratory: Test 09/06/25 11:47 09/06/25 05:35 09/06/25 05:30 09/05/25 15:08 Range/Units Whole Blood Glucose 152 #H 70-110 MG/DL Bedside Glucose Comment Notified Nurse White Blood Count 5.0 4.8-10.8 K/uL Red Blood Count 2.65 L 4.50-6.20 MIL/uL Hemoglobin 9.8 L 14.0-18.0 g/dL Hematocrit 27.3 L 42-54 % Mean Corpuscular Volume 103.0 H 79-99 fL Mean Corpuscular Hemoglobin 37.0 H 27.0-33.0 pg Mean Corpuscular Hemoglobin Concent 35.9 32.0-36.0 g/dL Red Cell Distribution Width 15.9 H 11.0-15.5 % Platelet Count 49 L 130-400 K/uL Mean Platelet Volume 10.5 7.5-10.5 fL Nucleated Red Blood Cells 0.0 0.0-0.19 % Sodium Level 137 136-145 mmol/L Potassium Level 4.2 3.5-5.1 mmol/L Chloride Level 109 101-111 mmol/L Carbon Dioxide Level 21 21-32 mmol/L Blood Urea Nitrogen 13 7-18 mg/dL Creatinine 1.2 0.5-1.3 mg/dL Glomerular Filtration Rate Calc 63 >90 mL/min Random Glucose 96 70-105 mg/dL Total Calcium 8.0 L 8.5-10.1 mg/dL Total Bilirubin 4.0 H 0.2-1.0 mg/dL Direct Bilirubin 1.6 H 0.0-0.3 mg/dL Aspartate Amino Transf (AST/SGOT) 50 H 10-37 U/L Alanine Aminotransferase (ALT/SGPT) 37 12-78 U/L Alkaline Phosphatase 212 H 50-136 U/L Ammonia 52 #H 11-32 umol/L Total Protein 6.2 6.0-8.3 g/dL Albumin 1.7 L 3.5-5.0 g/dL Magnesium Level 1.70 L 1.80-2.40 mg/dL Test 09/05/25 13:44 09/05/25 08:51 09/05/25 04:52 09/04/25 20:35 Range/Units Blood Gas Specimen Type Venous Arterial Blood Oxygen Saturation 62.4 L 94.0-98.0 % Venous Blood pH 7.441 H 7.320-7.430 Venous Blood pCO2 at Patient Temp 29 L 38-54 Venous Blood pO2 at Patient Temp 32.6 23.0-48.0 mmHg Venous Blood HCO3 19.4 L 22.0-29.0 Venous Blood Base Excess -3.8 L -2.0-3.0 Venous Blood Total Hemoglobin 11.2 L 13.5-17.5 Sodium (Blood Gas) 135 L 136-145 MMOL/L Bedside Potassium (Blood Gas) 4.6 H 3.4-4.5 MMOL/L Bedside Chloride (Blood Gas) 109 H 98-107 MMOL/L Bedside Glucose (Blood Gas) 189 H 65-95 MG/DL Bedside Ionized Calcium (Blood Gas) 1.19 1.15-1.33 MMOL/L Bedside Lactic Acid (Blood Gas) 2.83 H 0.36-0.75 MMOL/L Blood Gas Temperature 37.0 35.5-37.0 CELSIUS FiO2 21.0 % Blood Gas Specimen Comment ALDEN RA Lactic Acid Level 2.2 0.8-2.5 mmol/L Immature Granulocyte % (Auto) 0.6 0-1 % Neutrophils (%) (Auto) 58.0 40.0-77.0 % Lymphocytes (%) (Auto) 21.5 21.0-51.0 % Monocytes (%) (Auto) 13.8 H 3.0-13.0 % Eosinophils (%) (Auto) 4.8 0.0-8.0 % Basophils (%) (Auto) 1.3 0.0-5.0 % Neutrophils # (Auto) 3.2 1.8-7.7 K/uL Lymphocytes # (Auto) 1.2 1.0-4.8 K/uL Monocytes # (Auto) 0.8 0.1-1.0 K/uL Eosinophils # (Auto) 0.26 0.00-0.70 K/uL Basophils # (Auto) 0.07 0.00-0.20 K/uL Absolute Immature Granulocyte (auto 0.03 0-1 K/uL Platelet Morphology Comment See comments Procalcitonin < 0.05 L 0.05-0.5 ng/mL Urine Color YELLOW YELLOW Urine Appearance CLEAR CLEAR Urine pH 6.0 5.0-8.0 Urine Specific [place] 1.030 1.001-1.031 Urine Protein 20 H NEGATIVE mg/dL Urine Glucose (UA) 30 H NEGATIVE mg/dL Urine Ketones 5 H NEGATIVE mg/dL Urine Occult Blood NEGATIVE NEGATIVE Urine Nitrate NEGATIVE NEGATIVE Urine Bilirubin NEGATIVE NEGATIVE mg/dL Urine Urobilinogen 3 H 0.2-1.0 mg/dL Urine Leukocyte Esterase NEGATIVE NEGATIVE Davida/uL Urine RBC 2-5 H 0-1 /HPF Urine WBC 2-5 H 0-1 /HPF Urine Squamous Epithelial Cells RARE 0-2 /HPF Urine Bacteria None None Seen /HPF Test 09/04/25 19:55 Range/Units Red Blood Cell Morphology See comments Prothrombin Time 18.9 H 9.6-11.6 SEC Prothromb Time International Ratio 1.90 H 0.85-1.15 Activated Partial Thromboplast Time 33.2 26.3-35.5 SEC Troponin I High Sensitivity 17 4-75 ng/L B-Type Natriuretic Peptide 202 H 0-100 pg/mL Current Medications Medications (Trade) Dose Ordered Sig/Cheikh Route PRN Reason Start Time Stop Time Status Last Admin Dose Admin Acetaminophen (TYLenol 325MG TAB) 650 mg Q4H PRN PO MILD PAIN (1-3) 09/04/25 22:30 10/04/25 22:29 Acetaminophen (TYLenol 325MG TAB) 650 mg Q6H PRN PO TEMPERATURE GREATER THAN 101.5 09/04/25 22:30 10/04/25 22:29 Ceftriaxone Sodium (ROCEphine 1G INJ) 1 gm Q24H IVPB 09/05/25 13:30 09/05/25 14:51 DC Ceftriaxone Sodium (ROCEphine 1G INJ) 1 gm Q24H IVPB 09/05/25 15:00 09/15/25 14:59 09/05/25 14:58 1 GM Dextrose (D50w) 50 ml AD PRN IV HYPOGLYCEMIA PROTOCOL 09/05/25 00:00 10/05/25 00:00 Famotidine (Pepcid 20mg Tab) 20 mg DAILY PO 09/05/25 09:00 10/05/25 08:59 09/06/25 09:52 20 MG Glucagon (Glucagon 1mg Kit) 1 mg AD PRN IM HYPOGLYCEMIA PROTOCOL 09/05/25 00:00 10/05/25 00:00 Hydroxyzine HCl (ATArax 25MG TAB) 25 mg Q6H6 PRN PO ANXIETY 09/05/25 15:00 10/05/25 14:59 09/05/25 20:20 25 MG Insulin Human Regular (humuLIN R 100 UNIT/ML 3ML) INSULIN SLIDING SCAL... ACHS SQ 09/05/25 07:30 10/05/25 07:29 09/05/25 16:55 2 UNIT Lactulose (Constulose 20gm/ 30ml Udcup) 20 gm BID PO 09/05/25 09:00 09/06/25 12:55 DC 09/06/25 09:52 20 GM Lactulose (Constulose 20gm/ 30ml Udcup) 20 gm TID PO 09/06/25 13:00 10/05/25 08:59 Magnesium Sulfate 50 ml @ 0 mls/hr PROTOCOL IV 09/05/25 13:30 09/05/25 13:28 DC Magnesium Sulfate 50 ml @ 0 mls/hr PROTOCOL PRN IV OTHER [SEE ORDER COMMENTS] 09/05/25 00:00 10/05/25 00:00 09/05/25 14:57 2 MLS/HR Multivitamins/ Minerals 10 ml/ Folic Acid 1 mg/ Thiamine HCl 100 mg/Sodium Chloride 1,010 ml @ 50 mls/hr DAILY IV 09/06/25 09:00 09/05/25 14:52 DC Multivitamins/ Minerals 10 ml/ Folic Acid 1 mg/ Thiamine HCl 100 mg/Sodium Chloride 1,010 ml @ 50 mls/hr Q24H IV 09/05/25 13:30 09/08/25 09:41 09/05/25 17:01 50 MLS/HR Ondansetron HCl (zoFRAN 4MG INJ) 4 mg Q6H PRN IV NAUSEA/VOMITING 09/04/25 22:30 10/04/25 22:29 Potassium Chloride 100 ml @ 100 mls/hr AD PRN IV POTASSIUM PROTOCOL 09/05/25 00:00 10/05/25 00:00 Potassium Chloride (K-Dur/Klor-Con 20meq) 20 meq AD PRN PO POTASSIUM PROTOCOL 09/05/25 00:00 10/05/25 00:00 Potassium Chloride (KCl 10% Elixir 20meq/15ml) 20 meq AD PRN PO POTASSIUM PROTOCOL 09/05/25 00:00 10/05/25 00:00 Rifaximin (Xifaxan) 550 mg BID PO 09/05/25 21:00 10/05/25 20:59 09/06/25 09:52 550 MG Sodium Chloride 1,000 ml @ 150 mls/hr Q6H40M IV 09/04/25 20:30 09/04/25 22:40 DC 09/04/25 21:09 150 MLS/HR DIAGNOSTICS / RADIOLOGY: [ ] ASSESSMENT: Hepatic encephalopathy POA Hyperammonemia POA Atrial fibrillation POA Status post Watchman device POA Acute anemia POA Acute thrombocytopenia POA Hyponatremia POA Lactic acidosis POA Uncontrolled diabetes POA Elevated liver enzymes secondary to liver cirrhosis POA Elevated BNP POA Protein calorie malnutrition POA History of TIA POA History of fall PLAN: Monitor mental status, vital signs, and perform regular neurological checks. Order paracentesis via IR for ascites. Continue lactulose 20 g PO TID for hepatic encephalopathy; titrate to 23 soft stools daily. Heart-healthy diet and protein-calorie supplementation as tolerated. Insulin sliding scale AC & HS with hypoglycemia protocol; monitor blood glucose. Famotidine 20 mg PO daily for GI prophylaxis. Replace electrolytes as needed; monitor daily labs (CBC, CMP, ammonia, coags). Fall precautions and safety measures. Physical Therapy to evaluate and treat. Case Management to evaluate for SNF placement and long-term care needs. PRN medications for fever, pain, cough, nausea, and vomiting. Discharge planning: Had an in-depth discussion with the patient and family regarding discharge planning. Patients ultimate goal is to return home after SNF, with the likely need for hospice services upon discharge. Will coordinate with case management and hospice team to facilitate a safe transition and ensure appropriate support at home. Time spent: 35 minutes Case discussed with Dr. Browne, above plan was formulated ATTESTATION BY PHYSICIAN I have seen and examined the patient. I reviewed the documentation, medical decision making, and treatment plan as noted by the mid-level provider above. I agree with the findings and plan of care. MANASA BROWNE MD, JANICE B [facility] Sep 06, 2025 13:09
[2025-09-06 13:40] LABS: INR 1.84 (0.85-1.15)
[2025-09-06 16:00] VITALS: BP 106/61; PULSE 69; RESP 17; TEMP 97.8
[2025-09-06 20:00] VITALS: BP 108/76; PULSE 102; RESP 17; TEMP 98.2
[2025-09-06 23:37] VITALS: BP 120/74; PULSE 104; RESP 20; TEMP 98.4
[2025-09-07 03:36] VITALS: BP 119/70; PULSE 113; RESP 20; TEMP 98
[2025-09-07 04:07] LABS: NUCLEATED RED BLOOD CELLS 0.0 % (0.0-0.19); PLATELET COUNT (AUTO) 54.0 K/uL (130-400); RED BLOOD CELL COUNT(AUTO) 2.76 MIL/uL (4.50-6.20); RED CELL DISTRIBUTION WIDTH 15.9 % (11.0-15.5); WHITE BLOOD COUNT (AUTO) 6.1 K/uL (4.8-10.8)
[2025-09-07 04:25] LABS: ASPARTATE AMINOTRANSFERASE 48.0 U/L (10-37); CREATININE 1.2 mg/dL (0.5-1.3); GLOMERULAR FILTR. RATE CALC 63.0 mL/min (>90); GLUCOSE,RANDOM 117.0 mg/dL (70-105); SODIUM SERUM 138.0 mmol/L (136-145); TOTAL PROTEIN, SERUM 6.5 g/dL (6.0-8.3); UREA NITROGEN, BLOOD 14.0 mg/dL (7-18)
[2025-09-07 07:42] VITALS: BP 112/74; PULSE 105; RESP 17; TEMP 98
--- NOTE | 2025-09-07 11:54 | NUR ---
U/S GD PARACENTESIS PROCEDURE PERFORMED BY DR Felipe EDMONDSON. PUNCTURE SITE RLQ AND PATIENT TOLERATED PROCEDURE WELL. TOTAL REMOVED 3 LITERS OF CLOUDY YELLOW FLUID. END OF PROCEDURE AT 1130. CATHETER REMOVED AND DRESSING APPLIED. NO BLEEDING NOTED. REPORT GIVEN TO DOMITILA MARQUEZ AND PATIENT TRANSPORTED TO [facility] VIA BED AT 1145. AAO X3 WITH NO C/O PAIN. SPECIMEN SENT TO LAB.
[2025-09-07 12:20] VITALS: BP 130/79; PULSE 125; RESP 19; TEMP 97.8
[2025-09-07 12:38] VITALS: O2SAT 97
[2025-09-07 13:38] LABS: APPEARANCE BODY FLUID SLIGHTLY CLOUDY (CLEAR); COLOR,BODY FLUID YELLOW (LT YELLOW); SPECIMENTYPE,BODY FLUID ASCITES
[2025-09-07 13:39] LABS: TOTAL VOLUME,BODY FLUID 3000 mL
[2025-09-07 13:53] LABS: BODY FLUID RBC 916 /cu. mm.; BODY FLUID WBC 156 /cu. mm.
--- NOTE | 2025-09-07 14:36 | PN ---
[facility] PROGRESS NOTE Date of Service: Sep 07, 2025 Time of Service: 14:26 SUBJECTIVE: [The patient is alert but not fully oriented, demonstrating intermittent periods of lucidity. He has expressed a desire for rehabilitation and wishes to eventually return home to [place]. He is agreeable to staying with his daughter in [place], [place], and case management is coordinating placement at a senior living facility (SNF). This morning (09/07/25), the patient was asleep during initial evaluation. He was pending paracentesis at the time of rounds. Later, the patient underwent paracentesis in interventional radiology, where 3 liters of cloudy yellow fluid were removed. Family was updated regarding the procedure and current laboratory values. The patient continues to have moderate ascites. The plan is to proceed with SNF placement, pending facility acceptance. REVIEW OF SYSTEMS CONSTITUTIONAL: Patient appears pale looking Denies fevers, chills, or night sweats. No unintentional weight loss reported. NEUROLOGICAL: Patient is awake alert ,confused and forgetful Denies headache, amaurosis fugax, motor weakness, sensory deficit, vertigo/spinning sensation, gait abnormalities, or tremors. ENT: No hearing loss, otalgia, otorrhea, rhinitis, rhinorrhea, hoarseness, or sore throat. CARDIOVASCULAR: Denies any exertional angina, dyspnea on exertion, orthopnea, paroxysmal nocturnal dyspnea, palpitations, life-threatening arrhythmias, claudication. PULMONARY: Denies any shortness of breath, cough, phlegm/sputum, hemoptysis, pleuritic chest pain. SLEEP: Denies morning headaches, daytime somnolence or napping. Denies difficulty falling asleep, staying asleep, waking from sleep. Denies knowledge of snoring. GASTROINTESTINAL: Denies any type of dysphagia to either liquids or solids. Denies nausea, vomiting, pyrosis, early satiety, abdominal pain, diarrhea, constipation, or changes in stool consistency or caliber. Denies coffee-ground emesis, hematemesis, hematochezia, or melanotic stools. GENITOURINARY: Denies frequency, urgency, nocturia, hematuria or incontinence (Storage/Irritative symptoms.) Low urinary stream, straining to void, urinary intermittency or hesitancy, splitting of the voiding stream, terminal dribbling. ENDOCRINOLOGIC: Denies polyuria, polydipsia, polyphagia or heat/cold intolerances. HEMATOLOGIC: Denies thrombophilia/previous clots, or coagulopathy/bleeding disorders. ONCOLOGIC: Denies personal history of malignancy. DERMATOLOGIC: Denies rashes or pruritus. PSYCHIATRIC: Denies any suicidal or homicidal ideation. Denies hallucinations. PHYSICAL EXAM GENERAL APPEARANCE: The patient is awake, alert, and orientedx2 in no acute cardiopulmonary distress. NEUROLOGICAL: Patient is confused and forgetful No sensory deficits. HEENT: Face is symmetric. Pupils are equal and reactive. Extraocular movements are intact. NECK: Supple. No JVD. No thyromegaly. No submental, submandibular, pre- /postauricular, occipital or supraclavicular lymphadenopathy. CHEST: Normal chest expansion. No Telemetry. LUNGS: Absence of any rales, rhonchi or any wheezing. CARDIOVASCULAR: Irregular. S1 and S2 normal. No appreciable rubs, murmurs or gallops. ABDOMEN: Soft, nontender, and nondistended. There is no rebound, voluntary guarding, or rigidity. : Deferred. No [place]. EXTREMITIES: Non-edematous and not cyanotic. No clubbing. Good capillary refill. SKIN: No skin breakdown. Vital Signs (last 8hr) Date Time Temp Pulse Resp B/P (MAP) Pulse Ox O2 Delivery O2 Flow Rate FiO2 09/07/25 12:38 97 Room Air* 0 21 09/07/25 12:20 97.9 125 19 130/79 98 Room Air 09/07/25 07:42 98.1 105 17 112/74 100 Room Air LABS: Laboratory: Test 09/07/25 12:16 09/07/25 11:00 09/07/25 03:32 09/06/25 13:01 Range/Units Whole Blood Glucose 113 H 70-110 MG/DL Body Fluid Source ASCITES Body Fluid Volume 3000 mL Body Fluid Color YELLOW LT YELLOW Body Fluid Supernatant Appearance SLIGHTLY CLOUDY CLEAR White Blood Count 6.1 4.8-10.8 K/uL Red Blood Count 2.76 L 4.50-6.20 MIL/uL Hemoglobin 10.0 L 14.0-18.0 g/dL Hematocrit 29.0 L 42-54 % Mean Corpuscular Volume 105.1 H 79-99 fL Mean Corpuscular Hemoglobin 36.2 H 27.0-33.0 pg Mean Corpuscular Hemoglobin Concent 34.5 32.0-36.0 g/dL Red Cell Distribution Width 15.9 H 11.0-15.5 % Platelet Count 54 L 130-400 K/uL Mean Platelet Volume 10.6 H 7.5-10.5 fL Nucleated Red Blood Cells 0.0 0.0-0.19 % Sodium Level 138 136-145 mmol/L Potassium Level 3.9 3.5-5.1 mmol/L Chloride Level 110 101-111 mmol/L Carbon Dioxide Level 21 21-32 mmol/L Blood Urea Nitrogen 14 7-18 mg/dL Creatinine 1.2 0.5-1.3 mg/dL Glomerular Filtration Rate Calc 63 >90 mL/min Random Glucose 117 H 70-105 mg/dL Total Calcium 7.9 L 8.5-10.1 mg/dL Total Bilirubin 3.8 H 0.2-1.0 mg/dL Direct Bilirubin 1.6 H 0.0-0.3 mg/dL Aspartate Amino Transf (AST/SGOT) 48 H 10-37 U/L Alanine Aminotransferase (ALT/SGPT) 41 12-78 U/L Alkaline Phosphatase 231 H 50-136 U/L Ammonia 15 # 11-32 umol/L Total Protein 6.5 6.0-8.3 g/dL Albumin 1.7 L 3.5-5.0 g/dL Prothrombin Time 18.4 H 9.6-11.6 SEC Prothromb Time International Ratio 1.84 H 0.85-1.15 Test 09/06/25 05:35 09/05/25 15:08 Range/Units Bedside Glucose Comment Notified Nurse Magnesium Level 1.70 L 1.80-2.40 mg/dL Current Medications Medications (Trade) Dose Ordered Sig/Cheikh Route PRN Reason Start Time Stop Time Status Last Admin Dose Admin Acetaminophen (TYLenol 325MG TAB) 650 mg Q4H PRN PO MILD PAIN (1-3) 09/04/25 22:30 10/04/25 22:29 Acetaminophen (TYLenol 325MG TAB) 650 mg Q6H PRN PO TEMPERATURE GREATER THAN 101.5 09/04/25 22:30 10/04/25 22:29 Ceftriaxone Sodium (ROCEphine 1G INJ) 1 gm Q24H IVPB 09/05/25 13:30 09/05/25 14:51 DC Ceftriaxone Sodium (ROCEphine 1G INJ) 1 gm Q24H IVPB 09/05/25 15:00 09/15/25 14:59 09/06/25 14:52 1 GM Dextrose (D50w) 50 ml AD PRN IV HYPOGLYCEMIA PROTOCOL 09/05/25 00:00 10/05/25 00:00 Famotidine (Pepcid 20mg Tab) 20 mg DAILY PO 09/05/25 09:00 10/05/25 08:59 09/07/25 09:31 20 MG Glucagon (Glucagon 1mg Kit) 1 mg AD PRN IM HYPOGLYCEMIA PROTOCOL 09/05/25 00:00 10/05/25 00:00 Hydroxyzine HCl (ATArax 25MG TAB) 25 mg Q6H6 PRN PO ANXIETY 09/05/25 15:00 10/05/25 14:59 09/06/25 20:28 25 MG Insulin Human Regular (humuLIN R 100 UNIT/ML 3ML) INSULIN SLIDING SCAL... ACHS SQ 09/05/25 07:30 10/05/25 07:29 09/06/25 19:51 2 UNIT Lactulose (Constulose 20gm/ 30ml Udcup) 20 gm BID PO 09/05/25 09:00 09/06/25 12:55 DC 09/06/25 09:52 20 GM Lactulose (Constulose 20gm/ 30ml Udcup) 20 gm TID PO 09/06/25 13:00 10/05/25 08:59 09/07/25 09:31 20 GM Magnesium Sulfate 50 ml @ 0 mls/hr PROTOCOL IV 09/05/25 13:30 09/05/25 13:28 DC Magnesium Sulfate 50 ml @ 0 mls/hr PROTOCOL PRN IV OTHER [SEE ORDER COMMENTS] 09/05/25 00:00 10/05/25 00:00 09/05/25 14:57 2 MLS/HR Multivitamins/ Minerals 10 ml/ Folic Acid 1 mg/ Thiamine HCl 100 mg/Sodium Chloride 1,010 ml @ 50 mls/hr DAILY IV 09/06/25 09:00 09/05/25 14:52 DC Multivitamins/ Minerals 10 ml/ Folic Acid 1 mg/ Thiamine HCl 100 mg/Sodium Chloride 1,010 ml @ 50 mls/hr Q24H IV 09/05/25 13:30 09/08/25 09:41 09/06/25 14:52 50 MLS/HR Ondansetron HCl (zoFRAN 4MG INJ) 4 mg Q6H PRN IV NAUSEA/VOMITING 09/04/25 22:30 10/04/25 22:29 Potassium Chloride 100 ml @ 100 mls/hr AD PRN IV POTASSIUM PROTOCOL 09/05/25 00:00 10/05/25 00:00 Potassium Chloride (K-Dur/Klor-Con 20meq) 20 meq AD PRN PO POTASSIUM PROTOCOL 09/05/25 00:00 10/05/25 00:00 Potassium Chloride (KCl 10% Elixir 20meq/15ml) 20 meq AD PRN PO POTASSIUM PROTOCOL 09/05/25 00:00 10/05/25 00:00 Rifaximin (Xifaxan) 550 mg BID PO 09/05/25 21:00 10/05/25 20:59 09/07/25 09:31 550 MG Sodium Chloride 1,000 ml @ 150 mls/hr Q6H40M IV 09/04/25 20:30 09/04/25 22:40 DC 09/04/25 21:09 150 MLS/HR DIAGNOSTICS / RADIOLOGY: [ ] ASSESSMENT: Hepatic encephalopathy POA Hyperammonemia POA Atrial fibrillation POA Status post Watchman device POA Acute anemia POA Acute thrombocytopenia POA Hyponatremia POA Lactic acidosis POA Uncontrolled diabetes POA Elevated liver enzymes secondary to liver cirrhosis POA Elevated BNP POA Protein calorie malnutrition POA History of TIA POA History of fall PLAN: Monitor mental status, vital signs, and perform regular neurological checks. Paracentesis with 3 L removed via IR Continue lactulose 20 g PO TID for hepatic encephalopathy; titrate to 23 soft stools daily. Heart-healthy diet and protein-calorie supplementation as tolerated. Insulin sliding scale AC & HS with hypoglycemia protocol; monitor blood glucose. Famotidine 20 mg PO daily for GI prophylaxis. Replace electrolytes as needed; monitor daily labs (CBC, CMP, ammonia, coags). Fall precautions and safety measures. Physical Therapy to evaluate and treat. Case Management to evaluate for SNF placement and long-term care needs. PRN medications for fever, pain, cough, nausea, and vomiting. Discharge planning: Had an in-depth discussion with the patient and family regarding discharge planning. Patients ultimate goal is to return home after SNF, with the likely need for hospice services upon discharge. Will coordinate w [facility] case management and hospice team to facilitate a safe transition and ensure appropriate support at home. Case discussed with Dr. Browne above plan was formulated We will discharge patient to senior living facility once accepted Time spent: 35 minutes Case discussed with soniya Love plan was formulated ATTESTATION BY PHYSICIAN I have seen and examined the patient. I reviewed the documentation, medical decision making, and treatment plan as noted by the mid-level provider above. I agree with the findings and plan of care. MANASA BROWNE MD, [facility] Sep 07, 2025 14:36
--- NOTE | 2025-09-07 15:05 | HMCIMG ---
US ABDOMINAL PARACENTESIS IR REASON: ASCITES TECHNIQUE: Paracentesis was performed with ultrasound guidance. The puncture site was selected in the Right lower quadrant and overlying skin prepped and draped in a sterile fashion. 1% Xylocaine infiltration was performed. Catheter was placed in the fluid using trocar technique. 3 L were removed. Fluid sample was submitted for laboratory evaluation. The patient showed no evidence of complication during the procedure. Patient tolerated procedure well. IMPRESSION: 1. Ultrasound-guided paracentesis.
[2025-09-07 16:30] VITALS: BP 109/65; PULSE 103; RESP 19; TEMP 97.9
[2025-09-07 17:34] LABS: BF LYMPHOCYTE 39 %; BF MACROPHAGE 34; BF MESOTHELIAL 7 %; BF MONOCYTE 15 %; BF NEUTROPHIL 5.0 %; BF TOTAL CELLS COUNTED 100
[2025-09-07 20:00] VITALS: BP 112/74; PULSE 112; RESP 18; TEMP 93.2; O2SAT 98
[2025-09-08] VITALS (7 sets, daily range): BP systolic 96–134; BP diastolic 60–97; PULSE 73–135; RESP 18–20; TEMP 97.6–98.2; O2SAT 97–98
[2025-09-08 04:26] LABS: NUCLEATED RED BLOOD CELLS 0.0 % (0.0-0.19); PLATELET COUNT (AUTO) 54.0 K/uL (130-400); RED BLOOD CELL COUNT(AUTO) 2.61 MIL/uL (4.50-6.20); RED CELL DISTRIBUTION WIDTH 15.7 % (11.0-15.5); WHITE BLOOD COUNT (AUTO) 6.8 K/uL (4.8-10.8)
[2025-09-08 04:40] LABS: CREATININE 1.1 mg/dL (0.5-1.3); GLOMERULAR FILTR. RATE CALC 70.0 mL/min (>90); GLUCOSE,RANDOM 88.0 mg/dL (70-105); SODIUM SERUM 138.0 mmol/L (136-145); UREA NITROGEN, BLOOD 13.0 mg/dL (7-18)
[2025-09-08] MEDS: PoTASSium chloRIDE 20MEQ ER 20 MEQ ERTAB PO PRN (08:56)
[2025-09-08] MEDS ORDERED: PoTASSium chloRIDE 20MEQ ER 20 MEQ ERTAB PO ONE (09:30)
--- NOTE | 2025-09-08 09:32 | EKG ---
[facility] Test Date: 2025-09-08 Test Time: 09:27:22 Pat Name: LAWANDA MARTINEZ Department: [facility] Patient ID: [facility] [place], [place]-[id number] Room: 422 1 Gender: M Hospital Social Worker: ADDIE : 1950 Requested By: ALINE ROLON Order Number: [id number] Reading MD: Ahsan Villafana Measurements Intervals [place] Rate: 123 P: 0 VA: 0 QRS: -28 QRSD: 76 T: 158 QT: 280 QTc: 400 Interpretive Statements ATRIAL FIBRILLATION Low voltage QRS Cannot rule out Anterior infarct , age undetermined Compared to ECG 09/04/2025 18:55:01 Low QRS voltage now present Atrial fibrillation no longer present T-wave abnormality no longer present Myocardial infarct finding still present Electronically Signed On 09-09-2025 09:29:13 MANAGER INTELLIGENCE by Ahsan Villafana Please click the below link to view image of tracing.
[2025-09-08] MEDS: PoTASSium chloRIDE 20MEQ ER 20 MEQ ERTAB PO ONE (09:56)
[2025-09-08] MEDS: MAGNESIUM 2GM PREMIX 50ML 50 ML IV SCH (09:57)
--- NOTE | 2025-09-08 10:35 | PN ---
[facility] PROGRESS NOTE Date of Service: Sep 08, 2025 Time of Service: 10:21 SUBJECTIVE: Patient is alert but not fully oriented, with intermittent periods of lucidity. He expresses a strong desire for rehabilitation and eventual return home to [place]. He is agreeable to temporarily staying with his daughter in [place], [place]. Family is involved and updated regarding his care. Patient is anxious and adamant about leaving to start therapy at a [facility] facility (SNF), but placement is still pending financial acceptance. Objective: On 09/07/25, Underwent paracentesis in interventional radiology; 3 liters of cloudy yellow fluid removed. Today, patient noted to be anxious and tachycardic. 12-lead EKG ordered. Beta-vibha therapy restarted. Per daughter, history of atrial fibrillation and prior Watchman procedure. REVIEW OF SYSTEMS CONSTITUTIONAL: Patient appears pale looking Denies fevers, chills, or night sweats. No unintentional weight loss reported. NEUROLOGICAL: Patient is awake alert ,confused and forgetful Denies headache, amaurosis fugax, motor weakness, sensory deficit, vertigo/spinning sensation, gait abnormalities, or tremors. ENT: No hearing loss, otalgia, otorrhea, rhinitis, rhinorrhea, hoarseness, or sore throat. CARDIOVASCULAR: Denies any exertional angina, dyspnea on exertion, orthopnea, paroxysmal nocturnal dyspnea, palpitations, life-threatening arrhythmias, claudication. PULMONARY: Denies any shortness of breath, cough, phlegm/sputum, hemoptysis, p leuritic chest pain. SLEEP: Denies morning headaches, daytime somnolence or napping. Denies difficulty falling asleep, staying asleep, waking from sleep. Denies knowledge of snoring. GASTROINTESTINAL: Denies any type of dysphagia to either liquids or solids. Denies nausea, vomiting, pyrosis, early satiety, abdominal pain, diarrhea, constipation, or changes in stool consistency or caliber. Denies coffee-ground emesis, hematemesis, hematochezia, or melanotic stools. GENITOURINARY: Denies frequency, urgency, nocturia, hematuria or incontinence (Storage/Irritative symptoms.) Low urinary stream, straining to void, urinary intermittency or hesitancy, splitting of the voiding stream, terminal dribbling. ENDOCRINOLOGIC: Denies polyuria, polydipsia, polyphagia or heat/cold intoler ances. HEMATOLOGIC: Denies thrombophilia/previous clots, or coagulopathy/bleeding disorders. ONCOLOGIC: Denies personal history of malignancy. DERMATOLOGIC: Denies rashes or pruritus. PSYCHIATRIC: Denies any suicidal or homicidal ideation. Denies hallucinations. PHYSICAL EXAM GENERAL APPEARANCE: The patient is awake, alert, and orientedx2 in no acute cardiopulmonary distress. NEUROLOGICAL: Patient is confused and forgetful No sensory deficits. HEENT: Face is symmetric. Pupils are equal and reactive. Extraocular movements are intact. NECK: Supple. No JVD. No thyromegaly. No submental, submandibular, pre-/postauricular, occipital or supraclavicular lymphadenopathy. CHEST: Normal chest expansion. No Telemetry. LUNGS: Absence of any rales, rhonchi or any wheezing. CARDIOVASCULAR: Irregular. S1 and S2 normal. No appreciable rubs, murmurs or gallops. ABDOMEN: Soft, nontender, and nondistended. There is no rebound, voluntary guarding, or rigidity. : Deferred. No [place]. EXTREMITIES: Non-edematous and not cyanotic. No clubbing. Good capillary refill. SKIN: No skin breakdown. Vital Signs (last 8hr) Date Time Temp Pulse Resp B/P (MAP) Pulse Ox O2 Delivery O2 Flow Rate FiO2 09/08/25 08:08 97.9 135 20 134/97 97 Room Air 09/08/25 04:00 98.1 73 18 101/60 91 Room Air LABS: Laboratory: Test 09/08/25 05:27 09/08/25 03:33 09/07/25 11:00 09/07/25 03:32 Range/Units Whole Blood Glucose 92 # 70-110 MG/DL White Blood Count 6.8 4.8-10.8 K/uL Red Blood Count 2.61 L 4.50-6.20 MIL/uL Hemoglobin 9.5 L 14.0-18.0 g/dL Hematocrit 26.9 L 42-54 % Mean Corpuscular Volume 103.1 H 79-99 fL Mean Corpuscular Hemoglobin 36.4 H 27.0-33.0 pg Mean Corpuscular Hemoglobin Concent 35.3 32.0-36.0 g/dL Red Cell Distribution Width 15.7 H 11.0-15.5 % Platelet Count 54 L 130-400 K/uL Mean Platelet Volume 10.6 H 7.5-10.5 fL Nucleated Red Blood Cells 0.0 0.0-0.19 % Sodium Level 138 136-145 mmol/L Potassium Level 3.2 L 3.5-5.1 mmol/L Chloride Level 109 101-111 mmol/L Carbon Dioxide Level 21 21-32 mmol/L Blood Urea Nitrogen 13 7-18 mg/dL Creatinine 1.1 0.5-1.3 mg/dL Glomerular Filtration Rate Calc 70 >90 mL/min Random Glucose 88 70-105 mg/dL Total Calcium 7.5 L 8.5-10.1 mg/dL Magnesium Level 1.60 L 1.80-2.40 mg/dL Body Fluid Source ASCITES Body Fluid Volume 3000 mL Body Fluid Color YELLOW LT YELLOW Body Fluid Supernatant Appearance SLIGHTLY CLOUDY CLEAR Body Fluid WBC 156 /cu. mm. Body Fluid RBC 916 /cu. mm. Body Fluid Neutrophils 5.0 % Body Fluid Lymphocytes 39 % Body Fluid Monocytes % 15 % Body Fluid Macrophages (%) 34 Body Fluid Mesothelial Cells (%) 7 % Total Bilirubin 3.8 H 0.2-1.0 mg/dL Direct Bilirubin 1.6 H 0.0-0.3 mg/dL Aspartate Amino Transf (AST/SGOT) 48 H 10-37 U/L Alanine Aminotransferase (ALT/SGPT) 41 12-78 U/L Alkaline Phosphatase 231 H 50-136 U/L Ammonia 15 # 11-32 umol/L Total Protein 6.5 6.0-8.3 g/dL Albumin 1.7 L 3.5-5.0 g/dL Test 09/06/25 13:01 Range/Units Prothrombin Time 18.4 H 9.6-11.6 SEC Prothromb Time International Ratio 1.84 H 0.85-1.15 Current Medications Medications (Trade) Dose Ordered Sig/Cheikh Route PRN Reason Start Time Stop Time Status Last Admin Dose Admin Acetaminophen (TYLenol 325MG TAB) 650 mg Q4H PRN PO MILD PAIN (1-3) 09/04/25 22:30 10/04/25 22:29 Acetaminophen (TYLenol 325MG TAB) 650 mg Q6H PRN PO TEMPERATURE GREATER THAN 101.5 09/04/25 22:30 10/04/25 22:29 Atorvastatin Calcium (LIPItor 40MG) 80 mg HS PO 09/08/25 21:00 10/08/25 20:59 Ceftriaxone Sodium (ROCEphine 1G INJ) 1 gm Q24H IVPB 09/05/25 13:30 09/05/25 14:51 DC Ceftriaxone Sodium (ROCEphine 1G INJ) 1 gm Q24H IVPB 09/05/25 15:00 09/15/25 14:59 09/07/25 14:37 1 GM Dextrose (D50w) 50 ml AD PRN IV HYPOGLYCEMIA PROTOCOL 09/05/25 00:00 10/05/25 00:00 Famotidine (Pepcid 20mg Tab) 20 mg DAILY PO 09/05/25 09:00 10/05/25 08:59 09/08/25 08:56 20 MG Glucagon (Glucagon 1mg Kit) 1 mg AD PRN IM HYPOGLYCEMIA PROTOCOL 09/05/25 00:00 10/05/25 00:00 Hydroxyzine HCl (ATArax 25MG TAB) 25 mg Q6H6 PRN PO ANXIETY 09/05/25 15:00 10/05/25 14:59 09/07/25 23:13 25 MG Insulin Human Regular (humuLIN R 100 UNIT/ML 3ML) INSULIN SLIDING SCAL... ACHS SQ 09/05/25 07:30 10/05/25 07:29 09/07/25 21:23 3 UNIT Lactulose (Constulose 20gm/ 30ml Udcup) 20 gm BID PO 09/05/25 09:00 09/06/25 12:55 DC 09/06/25 09:52 20 GM Lactulose (Constulose 20gm/ 30ml Udcup) 20 gm TID PO 09/06/25 13:00 10/05/25 08:59 09/08/25 08:56 20 GM Magnesium Sulfate 50 ml @ 0 mls/hr PROTOCOL IV 09/05/25 13:30 09/05/25 13:28 DC Magnesium Sulfate 50 ml @ 0 mls/hr PROTOCOL IV 09/08/25 09:30 10/08/25 09:29 09/08/25 09:57 25 MLS/HR Magnesium Sulfate 50 ml @ 0 mls/hr PROTOCOL PRN IV OTHER [SEE ORDER COMMENTS] 09/05/25 00:00 09/08/25 09:07 DC 09/05/25 14:57 2 MLS/HR Metoprolol Tartrate (loprESSOR) 25 mg BID PO 09/08/25 10:00 10/08/25 09:59 09/08/25 09:56 25 MG Multivitamins/ Minerals 10 ml/ Folic Acid 1 mg/ Thiamine HCl 100 mg/Sodium Chloride 1,010 ml @ 50 mls/hr DAILY IV 09/06/25 09:00 09/05/25 14:52 DC Multivitamins/ Minerals 10 ml/ Folic Acid 1 mg/ Thiamine HCl 100 mg/Sodium Chloride 1,010 ml @ 50 mls/hr Q24H IV 09/05/25 13:30 09/08/25 09:41 DC 09/07/25 15:19 50 MLS/HR Ondansetron HCl (zoFRAN 4MG INJ) 4 mg Q6H PRN IV NAUSEA/VOMITING 09/04/25 22:30 10/04/25 22:29 Potassium Chloride 100 ml @ 50 mls/hr AD PRN IV POTASSIUM PROTOCOL 09/08/25 09:30 10/08/25 09:29 Potassium Chloride 100 ml @ 100 mls/hr AD PRN IV POTASSIUM PROTOCOL 09/05/25 00:00 10/05/25 00:00 Potassium Chloride (K-Dur/Klor-Con 20meq) 20 meq AD PRN PO POTASSIUM PROTOCOL 09/05/25 00:00 10/05/25 00:00 09/08/25 08:56 20 MEQ Potassium Chloride (KCl 10% Elixir 20meq/15ml) 20 meq AD PRN PO POTASSIUM PROTOCOL 09/05/25 00:00 10/05/25 00:00 Rifaximin (Xifaxan) 550 mg BID PO 09/05/25 21:00 10/05/25 20:59 09/08/25 09:56 550 MG Sodium Chloride 1,000 ml @ 150 mls/hr Q6H40M IV 09/04/25 20:30 09/04/25 22:40 DC 09/04/25 21:09 150 MLS/HR Spironolactone (Aldactone 25mg) 150 mg DAILY PO 09/09/25 09:00 10/09/25 08:59 DIAGNOSTICS / RADIOLOGY: [ ] ASSESSMENT: Atrial fibrillation, history of Watchman device, tachycardia today. Hepatic encephalopathy POA, intermittent lucidity Hyperammonemia POA Atrial fibrillation POA Status post Watchman device POA Acute anemia POA Acute thrombocytopenia POA Hyponatremia POA Lactic acidosis POA Uncontrolled diabetes POA Elevated liver enzymes secondary to liver cirrhosis POA Elevated BNP POA Protein calorie malnutrition POA History of TIA POA History of fall PLAN: Order 12-lead EKG; review results and titrate beta-vibha as appropriate. Paracentesis performed 09/07/25 with 3L removed via IR; monitor for recurrence, consider repeat as needed. Continue lactulose 20 g PO TID for hepatic encephalopathy; titrate to 23 soft stools daily. Heart-healthy diet and protein-calorie supplementation as tolerated. Insulin sliding scale AC & HS with hypoglycemia protocol; monitor blood glucose. Famotidine 20 mg PO daily for GI prophylaxis. Replace electrolytes as needed; monitor daily labs (CBC, CMP, ammonia, coags). Fall precautions and safety measures. Physical Therapy to evaluate and treat. Case Management to evaluate for SNF placement and long-term care needs; continue coordination and update family. PRN medications for fever, pain, cough, nausea, and vomiting. Continue monitoring mental status and hemodynamics. Provide supportive care and reassurance to address patients anxiety regarding discharge and rehabilitation. Case discussed with Dr. Browne; above plan formulated. We will discharge patient to [facility] facility once accepted ATTESTATION BY PHYSICIAN I have seen and examined the patient. I reviewed the documentation, medical decision making, and treatment plan as noted by the mid-level provider above. I agree with the findings and plan of care. MANASA BROWNE MD, [facility] Sep 08, 2025 10:35
[2025-09-09] VITALS (7 sets, daily range): BP systolic 91–112; BP diastolic 57–69; PULSE 87–111; RESP 18–20; TEMP 98–98.2; O2SAT 95–99
[2025-09-09 05:19] LABS: NUCLEATED RED BLOOD CELLS 0.0 % (0.0-0.19); PLATELET COUNT (AUTO) 56.0 K/uL (130-400); RED BLOOD CELL COUNT(AUTO) 2.64 MIL/uL (4.50-6.20); RED CELL DISTRIBUTION WIDTH 15.9 % (11.0-15.5); WHITE BLOOD COUNT (AUTO) 7.3 K/uL (4.8-10.8)
[2025-09-09 05:43] LABS: CREATININE 1.1 mg/dL (0.5-1.3); GLOMERULAR FILTR. RATE CALC 70.0 mL/min (>90); GLUCOSE,RANDOM 156.0 mg/dL (70-105); SODIUM SERUM 135.0 mmol/L (136-145); UREA NITROGEN, BLOOD 13.0 mg/dL (7-18)
[2025-09-09] MEDS ORDERED: MAGNESIUM 2GM PREMIX 50ML 50 ML IV SCH (08:00)
--- NOTE | 2025-09-09 08:00 | PN ---
[facility] PROGRESS NOTE Date of Service: Sep 09, 2025 Time of Service: 07:58 SUBJECTIVE: Patient is alert but not fully oriented, with intermittent periods of lucidity. He expresses a strong desire for rehabilitation and eventual return home to [place]. He is agreeable to temporarily staying with his daughter in [place], [place]. Family is involved and updated regarding his care. Patient is anxious and adamant about leaving to start therapy at a group home facility (SNF), but placement is still pending financial acceptance. Objective: On 09/07/25, Underwent paracentesis in interventional radiology; 3 liters of cloudy yellow fluid removed. HR improved Home meds restarted yesterday. No acute events reported overnight. REVIEW OF SYSTEMS CONSTITUTIONAL: Patient appears pale looking Denies fevers, chills, or night sweats. No unintentional weight loss reported. NEUROLOGICAL: Patient is awake alert ,confused and forgetful Denies headache, amaurosis fugax, motor weakness, sensory deficit, vertigo/spinning sensation, gait abnormalities, or tremors. ENT: No hearing loss, otalgia, otorrhea, rhinitis, rhinorrhea, hoarseness, or sore throat. CARDIOVASCULAR: Denies any exertional angina, dyspnea on exertion, orthopnea, paroxysmal nocturnal dyspnea, palpitations, life-threatening arrhythmias, claudication. PULMONARY: Denies any shortness of breath, cough, phlegm/sputum, hemoptysis, pleuritic chest pain. SLEEP: Denies morning headaches, daytime somnolence or napping. Denies difficulty falling asleep, staying asleep, waking from sleep. Denies knowledge of snoring. GASTROINTESTINAL: Denies any type of dysphagia to either liquids or solids. Denies nausea, vomiting, pyrosis, early satiety, abdominal pain, diarrhea, constipation, or changes in stool consistency or caliber. Denies coffee-ground emesis, hematemesis, hematochezia, or melanotic stools. GENITOURINARY: Denies frequency, urgency, nocturia, hematuria or incontinence (Storage/Irritative symptoms.) Low urinary stream, straining to void, urinary intermittency or hesitancy, splitting of the voiding stream, terminal dribbling. ENDOCRINOLOGIC: Denies polyuria, polydipsia, polyphagia or heat/cold intolerances. HEMATOLOGIC: Denies thrombophilia/previous clots, or coagulopathy/bleeding disorders. ONCOLOGIC: Denies personal history of malignancy. DERMATOLOGIC: Denies rashes or pruritus. PSYCHIATRIC: Denies any suicidal or homicidal ideation. Denies hallucinations. PHYSICAL EXAM GENERAL APPEARANCE: The patient is awake, alert, and orientedx2 in no acute cardiopulmonary distress. NEUROLOGICAL: Patient is confused and forgetful No sensory deficits. HEENT: Face is symmetric. Pupils are equal and reactive. Extraocular movements are intact. NECK: Supple. No JVD. No thyromegaly. No submental, submandibular, pre- /postauricular, occipital or supraclavicular lymphadenopathy. CHEST: Normal chest expansion. No Telemetry. LUNGS: Absence of any rales, rhonchi or any wheezing. CARDIOVASCULAR: Irregular. S1 and S2 normal. No appreciable rubs, murmurs or gallops. ABDOMEN: Soft, nontender, and nondistended. There is no rebound, voluntary guarding, or rigidity. : Deferred. No [place]. EXTREMITIES: Non-edematous and not cyanotic. No clubbing. Good capillary refill. SKIN: No skin breakdown. Vital Signs (last 8hr) Date Time Temp Pulse Resp B/P (MAP) Pulse Ox O2 Delivery O2 Flow Rate FiO2 09/09/25 04:00 98.2 87 18 100 Room Air 09/09/25 00:00 98.2 111 20 98/64 98 Room Air LABS: Laboratory: Test 09/09/25 06:28 09/09/25 04:55 09/07/25 11:00 Range/Units Whole Blood Glucose 125 H 70-110 MG/DL White Blood Count 7.3 4.8-10.8 K/uL Red Blood Count 2.64 L 4.50-6.20 MIL/uL Hemoglobin 9.6 L 14.0-18.0 g/dL Hematocrit 27.2 L 42-54 % Mean Corpuscular Volume 103.0 H 79-99 fL Mean Corpuscular Hemoglobin 36.4 H 27.0-33.0 pg Mean Corpuscular Hemoglobin Concent 35.3 32.0-36.0 g/dL Red Cell Distribution Width 15.9 H 11.0-15.5 % Platelet Count 56 L 130-400 K/uL Mean Platelet Volume 10.7 H 7.5-10.5 fL Nucleated Red Blood Cells 0.0 0.0-0.19 % Sodium Level 135 L 136-145 mmol/L Potassium Level 3.9 3.5-5.1 mmol/L Chloride Level 109 101-111 mmol/L Carbon Dioxide Level 21 21-32 mmol/L Blood Urea Nitrogen 13 7-18 mg/dL Creatinine 1.1 0.5-1.3 mg/dL Glomerular Filtration Rate Calc 70 >90 mL/min Random Glucose 156 H 70-105 mg/dL Total Calcium 7.7 L 8.5-10.1 mg/dL Magnesium Level 1.90 1.80-2.40 mg/dL Body Fluid Source ASCITES Body Fluid Volume 3000 mL Body Fluid Color YELLOW LT YELLOW Body Fluid Supernatant Appearance SLIGHTLY CLOUDY CLEAR Body Fluid WBC 156 /cu. mm. Body Fluid RBC 916 /cu. mm. Body Fluid Neutrophils 5.0 % Body Fluid Lymphocytes 39 % Body Fluid Monocytes % 15 % Body Fluid Macrophages (%) 34 Body Fluid Mesothelial Cells (%) 7 % Current Medications Medications (Trade) Dose Ordered Sig/Cheikh Route PRN Reason Start Time Stop Time Status Last Admin Dose Admin Acetaminophen (TYLenol 325MG TAB) 650 mg Q4H PRN PO MILD PAIN (1-3) 09/04/25 22:30 10/04/25 22:29 Acetaminophen (TYLenol 325MG TAB) 650 mg Q6H PRN PO TEMPERATURE GREATER THAN 101.5 09/04/25 22:30 10/04/25 22:29 Atorvastatin Calcium (LIPItor 40MG) 80 mg HS PO 09/08/25 21:00 10/08/25 20:59 09/08/25 20:55 80 MG Ceftriaxone Sodium (ROCEphine 1G INJ) 1 gm Q24H IVPB 09/05/25 13:30 09/05/25 14:51 DC Ceftriaxone Sodium (ROCEphine 1G INJ) 1 gm Q24H IVPB 09/05/25 15:00 09/15/25 14:59 09/08/25 14:59 1 GM Dextrose (D50w) 50 ml AD PRN IV HYPOGLYCEMIA PROTOCOL 09/05/25 00:00 10/05/25 00:00 Famotidine (Pepcid 20mg Tab) 20 mg DAILY PO 09/05/25 09:00 10/05/25 08:59 09/08/25 08:56 20 MG Glucagon (Glucagon 1mg Kit) 1 mg AD PRN IM HYPOGLYCEMIA PROTOCOL 09/05/25 00:00 10/05/25 00:00 Hydroxyzine HCl (ATArax 25MG TAB) 25 mg Q6H6 PRN PO ANXIETY 09/05/25 15:00 10/05/25 14:59 09/08/25 20:55 25 MG Insulin Human Regular (humuLIN R 100 UNIT/ML 3ML) INSULIN SLIDING SCAL... ACHS SQ 09/05/25 07:30 10/05/25 07:29 09/08/25 17:09 2 UNIT Lactulose (Constulose 20gm/ 30ml Udcup) 20 gm BID PO 09/05/25 09:00 09/06/25 12:55 DC 09/06/25 09:52 20 GM Lactulose (Constulose 20gm/ 30ml Udcup) 20 gm TID PO 09/06/25 13:00 10/05/25 08:59 09/08/25 20:55 20 GM Magnesium Sulfate 50 ml @ 0 mls/hr PROTOCOL IV 09/05/25 13:30 09/05/25 13:28 DC Magnesium Sulfate 50 ml @ 0 mls/hr PROTOCOL IV 09/08/25 09:30 10/08/25 09:29 09/08/25 09:57 25 MLS/HR Magnesium Sulfate 50 ml @ 0 mls/hr PROTOCOL IV 09/09/25 08:00 10/09/25 07:59 UNV Magnesium Sulfate 50 ml @ 0 mls/hr PROTOCOL PRN IV OTHER [SEE ORDER COMMENTS] 09/05/25 00:00 09/08/25 09:07 DC 09/05/25 14:57 2 MLS/HR Metoprolol Tartrate (loprESSOR) 25 mg BID PO 09/08/25 10:00 10/08/25 09:59 09/08/25 20:55 25 MG Multivitamins/ Minerals 10 ml/ Folic Acid 1 mg/ Thiamine HCl 100 mg/Sodium Chloride 1,010 ml @ 50 mls/hr DAILY IV 09/06/25 09:00 09/05/25 14:52 DC Multivitamins/ Minerals 10 ml/ Folic Acid 1 mg/ Thiamine HCl 100 mg/Sodium Chloride 1,010 ml @ 50 mls/hr Q24H IV 09/05/25 13:30 09/08/25 09:41 DC 09/07/25 15:19 50 MLS/HR Ondansetron HCl (zoFRAN 4MG INJ) 4 mg Q6H PRN IV NAUSEA/VOMITING 09/04/25 22:30 10/04/25 22:29 Potassium Chloride 100 ml @ 50 mls/hr AD PRN IV POTASSIUM PROTOCOL 09/08/25 09:30 10/08/25 09:29 Potassium Chloride 100 ml @ 100 mls/hr AD PRN IV POTASSIUM PROTOCOL 09/05/25 00:00 10/05/25 00:00 Potassium Chloride (K-Dur/Klor-Con 20meq) 20 meq AD PRN PO POTASSIUM PROTOCOL 09/05/25 00:00 10/05/25 00:00 09/08/25 08:56 20 MEQ Potassium Chloride (KCl 10% Elixir 20meq/15ml) 20 meq AD PRN PO POTASSIUM PROTOCOL 09/05/25 00:00 10/05/25 00:00 Rifaximin (Xifaxan) 550 mg BID PO 09/05/25 21:00 10/05/25 20:59 09/08/25 20:55 550 MG Sodium Chloride 1,000 ml @ 150 mls/hr Q6H40M IV 09/04/25 20:30 09/04/25 22:40 DC 09/04/25 21:09 150 MLS/HR Spironolactone (Aldactone 25mg) 150 mg DAILY PO 09/09/25 09:00 10/09/25 08:59 DIAGNOSTICS / RADIOLOGY: [ ] ASSESSMENT: Atrial fibrillation, history of Watchman device, tachycardia improved. Hepatic encephalopathy POA, intermittent lucidity Hyperammonemia POA Atrial fibrillation POA Status post Watchman device POA Acute anemia POA Acute thrombocytopenia POA Hyponatremia POA Lactic acidosis POA Uncontrolled diabetes POA Elevated liver enzymes secondary to liver cirrhosis POA Elevated BNP POA Protein calorie malnutrition POA History of TIA POA History of fall PLAN: Order 12-lead EKG; review results and titrate beta-vibha as appropriate. Paracentesis performed 09/07/25 with 3L removed via IR; monitor for recurrence, consider repeat as needed. Continue lactulose 20 g PO TID for hepatic encephalopathy; titrate to 23 soft stools daily. Heart-healthy diet and protein-calorie supplementation as tolerated. Insulin sliding scale AC & HS with hypoglycemia protocol; monitor blood glucose. Famotidine 20 mg PO daily for GI prophylaxis. Replace electrolytes as needed; monitor daily labs (CBC, CMP, ammonia, coags). Fall precautions and safety measures. Physical Therapy to evaluate and treat. Case Management to evaluate for SNF placement and long-term care needs; continue coordination and update family. PRN medications for fever, pain, cough, nausea, and vomiting. Continue monitoring mental status and hemodynamics. Provide supportive care and reassurance to address patients anxiety regarding discharge and rehabilitation. Case discussed with Dr. Browne; above plan formulated. We will discharge patient to group home facility once accepted ATTESTATION BY PHYSICIAN I have seen and examined the patient. I reviewed the documentation, medical decision making, and treatment plan as noted by the mid-level provider above. I agree with the findings and plan of care. MANASA BROWNE MD, [facility] Sep 09, 2025 08:00
[2025-09-09] MEDS: SPIRONOLACTONE 25 MG TAB PO SCH (10:14)
--- NOTE | 2025-09-09 10:40 | NUR ---
PHYSICIAN ROUNDING DR. BROWNE ROUNDING ON UNIT. PER MD CHANGE ALDACTONE 150 MG TO 100 MG.
[2025-09-10] VITALS: BP 110/68; PULSE 97; RESP 18; TEMP 98.5
[2025-09-10 04:15] VITALS: BP 93/55; PULSE 105; RESP 18; TEMP 98.2
[2025-09-10 05:47] LABS: NUCLEATED RED BLOOD CELLS 0.0 % (0.0-0.19); PLATELET COUNT (AUTO) 59.0 K/uL (130-400); RED BLOOD CELL COUNT(AUTO) 2.67 MIL/uL (4.50-6.20); RED CELL DISTRIBUTION WIDTH 16.0 % (11.0-15.5); WHITE BLOOD COUNT (AUTO) 7.3 K/uL (4.8-10.8)
[2025-09-10 06:02] LABS: ASPARTATE AMINOTRANSFERASE 45.0 U/L (10-37); CREATININE 1.1 mg/dL (0.5-1.3); GLOMERULAR FILTR. RATE CALC 70.0 mL/min (>90); GLUCOSE,RANDOM 126.0 mg/dL (70-105); SODIUM SERUM 137.0 mmol/L (136-145); TOTAL PROTEIN, SERUM 6.0 g/dL (6.0-8.3); UREA NITROGEN, BLOOD 14.0 mg/dL (7-18)
[2025-09-10 08:00] VITALS: BP 104/72; PULSE 86; RESP 20; TEMP 98
[2025-09-10] MEDS: SPIRONOLACTONE 25 MG TAB PO SCH (09:05)
--- NOTE | 2025-09-10 10:18 | NUR ---
DC PLAN CM SPOKE TO ETHAN [place] SAID CLINICALS RECEIVED FROM [facility] PATIENT DOES NOT QUALIFY FOR SNF. DAUGHTER CALLED AND LEFT MESSAGE WITH ADELSO SOLIMAN THAT [facility] WAS MISSING CLINICALS AND LABS. UPDATE SENT TO [place] AND TO [facility]. CM WENT OVER THE CASE WITH ETHAN FROM [place]. WBC IS NORMAL, BC - 5 DAYS, NO POSITIVE CULTURE, PT WALKED 250 FT. NO SKILL FO SNF EVIDENT. ETHAN RECEIVED UPDATED CLINICS WILL SUBMIT BUT DOES NOT SEE IT BEING APPROVED. SAID [facility] SAID PATIENT W[facility] BE [facility] FOR SNF PLACEMENT IF THAT IS WHAT FAMILY IS LOOKING FOR. PATIENT SECONDARY INSURANCE IS [facility]. THAT INSURANCE IS MORE STRICT FOR CRITERIA FOR SNF [facility] [place]. CM LET CM DIRECTOR KNOW OF CONVERSATIONS.
[2025-09-10 11:36] VITALS: BP 104/63; PULSE 78; RESP 20; TEMP 98.2
--- NOTE | 2025-09-10 13:48 | DS ---
Discharge Summary Hospital Course Summary: Reason for Admission 75-year-old male with a history of atrial fibrillation (s/p Watchman device), type 2 diabetes, stage IV liver cancer, cirrhosis, hypertension, prior stroke, and recent falls, admitted for evaluation and management of acute altered mental status. Hospital Course Mr. Zarate is a 75-year-old male with a history of atrial fibrillation (s/p Watchman device), type 2 diabetes, stage IV liver cancer, cirrhosis, hyperten jose, prior stroke, and recent falls. He was admitted for evaluation and management of acute confusion and worsening mental status. On admission, he was awake but confused, with intermittent lucidity. Initial labs were notable for anemia, thrombocytopenia, hyponatremia, hyperammonemia, elevated liver enzymes, hypoalbuminemia, and lactic acidosis. Imaging showed no acute intracranial process but chronic small vessel ischemic changes. He was managed for hepatic encephalopathy with lactulose (titrated to TID) and rifaximin, with improvement in mental status. He developed moderate ascites and underwent IR-guided paracentesis with removal of 3L of cloudy yellow fluid; no evidence of spontaneous bacterial peritonitis. His atrial fibrillation was rate controlled with metoprolol. Diabetes was managed with sliding scale insulin. Nutritional support included a banana bag and protein-calorie supplementation. Electrolyte abnormalities were corrected as needed. Famotidine was provided for GI prophylaxis. Physical therapy evaluated the patient for rehabilitation needs. Case management coordinated fdc facility (SNF) placement. The pat ient and family were involved in care planning and goals of care discussions. He is now hemodynamically stable, more alert and oriented, and agreeable to SNF placement for continued rehabilitation. Clinical Status at Discharge: Patient is hemodynamically stable, more alert and oriented, with improved mental status. No acute events in the last 48 hours. Family at bedside, involved in care planning. Patient expresses desire for rehabilitation and eventual return home; agreeable to SNF placement for continued therapy. Discharge Disposition To: Custodial Facility (SNF) for rehabilitation Family: Daughter in [place], [place], involved in care and discharge planning SUMMARY: Mr. Zarate was admitted for acute encephalopathy in the setting of advanced liver disease and multiple comorbidities. He responded to medical management, including lactulose, rifaximin, nutritional support, and paracentesis. He is now stable for transfer to a fdc facility for continued rehabilitation and supportive care, with family and case management involved in ongoing planning. Assessment/Plan: DC DIAGNOSES: Hepatic encephalopathy (improved with lactulose/rifaximin) Hyperammonemia (improved with therapy) Atrial fibrillation (rate-controlled with metoprolol) Status post Watchman device (no acute complications) Acute anemia (stable, no transfusion) Acute thrombocytopenia (stable, no bleeding) Hyponatremia (corrected to normal) Lactic acidosis (resolved with supportive care) Uncontrolled diabetes mellitus (improved with insulin) Elevated liver enzymes secondary to cirrhosis (stable) Elevated BNP (stable) Protein-calorie malnutrition (improved with nutrition) History of TIA (stable) History of fall (no new falls) ASSESSMENT: Atrial fibrillation, history of Watchman device, tachycardia improved. Hepatic encephalopathy POA, intermittent lucidity Hyperammonemia POA Atrial fibrillation POA Status post Watchman device POA Acute anemia POA Acute thrombocytopenia POA Hyponatremia POA Lactic acidosis POA Uncontrolled diabetes POA Elevated liver enzymes secondary to liver cirrhosis POA Elevated BNP POA Protein calorie malnutrition POA History of TIA POA History of fall PLAN: Order 12-lead EKG; review results and titrate beta-vibha as appropriate. Paracentesis performed 09/07/25 with 3L removed via IR; monitor for recurrence, consider repeat as needed. Continue lactulose 20 g PO TID for hepatic encephalopathy; titrate to 23 soft stools daily. Heart-healthy diet and protein-calorie supplementation as tolerated. Insulin sliding scale AC & HS with hypoglycemia protocol; monitor blood glucose. Famotidine 20 mg PO daily for GI prophylaxis. Replace electrolytes as needed; monitor daily labs (CBC, CMP, ammonia, coags). Fall precautions and safety measures. Physical Therapy to evaluate and treat. Case Management to evaluate for SNF placement and long-term care needs; continue coordination and update family. PRN medications for fever, pain, cough, nausea, and vomiting. Continue monitoring mental status and hemodynamics. Provide supportive care and reassurance to address patients anxiety regarding discharge and rehabilitation. Case discussed with Dr. Browne; above plan formulated. We will discharge patient to fdc facility once accepted Discharge Instructions: Follow-Up and Recommendations Continue close monitoring of mental status, hemodynamics, and laboratory parameters at SNF. Maintain fall precautions and safety measures. Continue physical therapy and nutritional support. Monitor for recurrence of ascites; repeat paracentesis as clinically indicated. Reassess for hospice eligibility as appropriate; palliative care consult recommended for ongoing [id number] discussions. Outpatient follow-up with primary care, hepatology, and cardiology as arranged by SNF. Home Medications: Reported Medications Metoprolol Tartrate (Metoprolol Tartrate) 25 Mg Tablet, 0.5 TAB PO BID for 30 Days, #60 TAB 0 Refills 09/05/25 NPH, Human Insulin Isophane (Novolin N) 100 Unit/Ml Vial, 0 SQ BID, VIAL 09/04/25 Rosuvastatin Calcium (Rosuvastatin Calcium) 10 Mg Tablet, 20 MG PO DAILY, TAB 09/04/25 Rifaximin (Xifaxan) 550 Mg Tablet, 1 TAB PO BID for 10 Days, #20 TAB 0 Refills 09/04/25 Omeprazole (Omeprazole) 20 Mg Tablet.dr, 1 TAB PO BIDAC for 30 Days, #30 TAB 0 Refills 09/04/25 Spironolactone (Spironolactone) 100 Mg Tablet, 150 MG PO DAILY, TAB 09/04/25 Lactulose (Lactulose) 10 Gram/15 Ml Solution, 30 ML PO TID for constipation, #500 ML 0 Refills 09/04/25 Time spent arranging discharge: 31-60 minutes ATTESTATION BY PHYSICIAN I have seen and examined the patient. I reviewed the documentation, medical decision making, and treatment plan as noted by the mid-level provider above. I agree with the findings and plan of care. MANASA BROWNE MD, [facility] Sep 10, 2025 13:48
--- NOTE | 2025-09-10 14:23 | NUR ---
PATIENT DISCHARGED PATIENT DISCHARGED TO DAUGHTER. PATIENT TO BE ADMITTED TO [facility]. DISCHARGE INSTRUCTIONS GIVEN. CHART COPY AND MED REC SENT WITH PATIENT. PERIPHERAL IV REMOVED. CATHETER INTACT. PAPER WORK GIVEN TO DAUGHTER. ALL QUESTIONS ANSWERED. REPORT CALLED TO [facility], [facility] [employer] [employer] [facility] [employer] ALL QUESTIONS ANSWERED. PATIENT TAKEN DOWN BY WHEELCHAIR TO PRIVATE VEHICLE. ALL BELONGINGS SENT WITH PATIENT.
== END 2025-09-10 14:15 | DRG 442 ==
LOC: EDH 18:32 → EDHIP 22:13 → 4CH 22:59 → 4DH 09-05 15:38
PROVIDERS: ADMIT Internal Medicine; ATTEND Internal Medicine
PROC: 0W9G3ZZ Drainage of Peritoneal Cavity, Percutaneous Approach (ICD-10-PCS; principal; 2025-09-07)
DX: K76.82 Hepatic encephalopathy (principal); E46 Unspecified protein-calorie malnutrition; E87.20 Acidosis, unspecified; R18.8 Other ascites; E88.09 Other disorders of plasma-protein metabolism, not elsewhere classified; E87.1 Hypo-osmolality and hyponatremia; I48.91 Unspecified atrial fibrillation; D69.6 Thrombocytopenia, unspecified; D64.9 Anemia, unspecified; E11.9 Type 2 diabetes mellitus without complications; K74.60 Unspecified cirrhosis of liver; I10 Essential (primary) hypertension; R79.89 Other specified abnormal findings of blood chemistry; E78.00 Pure hypercholesterolemia, unspecified; Z95.818 Presence of other cardiac implants and grafts; Z85.05 Personal history of malignant neoplasm of liver; Z86.73 Personal history of transient ischemic attack (TIA), and cerebral infarction without residual deficits; Z68.22 Body mass index [BMI] 22.0-22.9, adult
CPT/HCPCS: 36415; 36600; 49083; 70450; 71045; 76705; 80048; 80053; 80076; 81001; 82140; 82435; 82803; 82947; 82948; 83605; 83735; 83880; 84132; 84145; 84295; 84484; 85025; 85027; 85610; 85730; 87040; 87071; 87205; 89051; 93005; 99285; C1729; G0378; J0696; J1815; J3411; J3475; J3490; J7030